=== PATIENT | female | born 1965 | race Caucasian/White ===

== ENCOUNTER 2016-05-05 08:04 | Emergency (ER) | payer MEDICAID, OTHER ==
[~2016-05-05] VITALS: Ht 162.6 cm; Wt 220.9 kg
--- OUTSIDE RECORDS SUMMARY | 2016-05-05 08:11 | XMS REPORT ---
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 Name Role Phone GIANLUCA GARCIA CP Unavailable Allergies No Known Allergies Problems Problem Type Condition Code Onset Dates Condition Status Problem Polycystic ovaries 256.4 Active Problem Unspecified hypothyroidism 244.9 Active Problem Depressive disorder, not elsewhere classified 311 Active Problem Absence of menstruation 626.0 Active Problem Morbid obesity 278.01 Active Problem Type II or unspecified type diabetes mellitus with neurological manifestations, 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
[2016-05-05] MEDS ORDERED: RT-ALBUTEROL SULF 2.5 MG/3 ML PRE-MIX VIAL INH STA (08:22)
[2016-05-05] MEDS ORDERED: METF500T4 PO (08:30)
[2016-05-05] MEDS ORDERED: INSU100V6 SQ (08:30)
[2016-05-05] MEDS ORDERED: LEVO75TA6 PO (08:30)
[2016-05-05] MEDS ORDERED: PIOG30TA38 PO (08:30)
[2016-05-05] MEDS ORDERED: ASPIRIN 81 MG CHEW (CHILDREN'S ASA) PO ONE (08:30)
[2016-05-05] MEDS ORDERED: FURO20TA4 PO (08:30)
[2016-05-05] MEDS ORDERED: RT-ALBUTEROL/IPRATROPIUM 3 ML (DUONEB) VIAL INH ONE (08:30)
--- NOTE | 2016-05-05 08:40 | ED Respiratory ---
General Chief Complaint: Chest Wall/Rib Pain Stated Complaint: CHEST PAIN/SOA Source: patient Exam Limitations: no limitations History of Present Illness Time seen by provider: 08:25 Initial Comments Here with report of upper chest tightness for the last 12 hours. States feels like she can't get a full deep breath. She did try a breathing treatment and that did not help. Pain is described as a tightness or heaviness. This is been persistent for the last 12 hours. She did take 2 baby aspirin last night but nothing this morning. Timing/Duration: yesterday Severity: moderate Prior Episodes/Possible Cause: occasional episodes Modifying Factors: Worse With Activity, Worse With Coughing, Worse With Lying Down Associated Symptoms: chest pain/soreness coughNo fever/chills, nasal congestion shortness of breathNo sinus infection Allergies and Home Medications Allergies Coded Allergies: Sulfa (Sulfonamide Antibiotics) (Verified Allergy, Unknown, 05/05/16) codeine (Verified Allergy, Unknown, 05/05/16) levofloxacin (Verified Allergy, Unknown, 05/05/16) Home Medications Furosemide 20 Mg Tablet #30 (Reported) Insulin Glargine,Hum.rec.anlog 100 Unit/1 Ml Vial #70 (Reported) Levothyroxine Sodium 75 Mcg Tablet #30 (Reported) Metformin HCl 500 Mg Tablet #30 (Reported) Pioglitazone HCl 30 Mg Tablet 30 MG PO (Reported) Constitutional: see HPINo chills, No fever EENTM: no symptoms reported Respiratory: cough dyspnea on exertion short of breath Cardiovascular: chest pain edema Gastrointestinal: no symptoms reported Musculoskeletal: muscle painNo neck pain Skin: no symptoms reported Psychiatric/Neurological: No Symptoms Reported All Other Systems Reviewed Negative Unless Noted: Yes Past Zrdemca-Bkiggs-Fdcoic Hx Patient Social History Alcohol Use: Occasionally Uses Recreational Drug Use: No Smoking Status: Never a Smoker Recent Hopitalizations: No Seasonal Allergies Seasonal Allergies: Yes Surgeries Surgeries: Gallbladder, Tonsillectomy Respiratory Hx Respiratory Disorders: Yes Respiratory Disorders: Asthma, COPD Cardiovascular Hx Cardiac Disorders: No Cardiac Disorders: High Cholesterol Neurological Hx Neurological Disorders: No Genitourinary Hx Genitourinary Disorders: No Gastrointestinal Hx Gastrointestinal Disorders: No Musculoskeletal Hx Musculoskeletal Disorders: Yes Musculoskeletal Disorders: Arthritis Endocrine Hx Endocrine Disorders: Yes Endocrine Disorders: Diabetes, Insulin dep, Hypothyroidsim Cancer Hx Cancer: No Psychosocial Hx Psychiatric Problems: Yes Behavioral Health Disorders: Anxiety Reviewed Nursing Assessment Reviewed/Agree w Nursing PMH: Yes Family Medical History Significant Family History: No Pertinent Family Hx Physical Exam Vital Signs Vital Sign - Last 12Hours 05/05/16 08:09 Temp 97.3 Pulse 89 Resp 18 B/P 168/95 Pulse Ox 96 O2 Delivery Room Air Capillary Refill : General Appearance: WD/WN no apparent distress obese HEENT: PERRL/EOMI pharynx normal other (frontal and maxillary sinus tenderness with moderate nasal congestion.) Neck: full range of motion supple Respiratory: lungs clear normal breath sounds Cardiovascular: regular rate, rhythm no murmur Gastrointestinal: non tender soft Extremities: normal range of motion non-tender pedal edema (versus adipose tissue. Patient states she feels more swollen.) Neurologic/Psychiatric: alert oriented x 3 Skin: normal color warm/dry Progress/Results/Core Measures Results/Orders Lab Results Laboratory Tests Test 05/05/16 08:49 Range/Units Activated Partial Thromboplast Time 27 24-35 SEC Alanine Aminotransferase (ALT/SGPT) 17 0-55 U/L Albumin 3.8 3.2-4.5 G/DL Alkaline Phosphatase 84 40-136 U/L Anion Gap 14 5-14 MMOL/L Aspartate Amino Transf (AST/SGOT) 13 5-34 U/L BUN/Creatinine Ratio 18 Basophils # (Auto) 0.0 0.0-0.1 10^3/uL Basophils (%) (Auto) 0 0-10 % Blood Urea Nitrogen 14 7-18 MG/DL Calcium Level 8.7 8.5-10.1 MG/DL Carbon Dioxide Level 23 21-32 MMOL/L Chloride Level 104 98-107 MMOL/L Creatinine 0.79 0.60-1.30 MG/DL Eosinophils # (Auto) 0.1 0.0-0.3 10^3/uL Eosinophils (%) (Auto) 2 0-10 % Estimat Glomerular Filtration Rate > 60 Glucose Level 139 H 70-105 MG/DL Hematocrit 37 35-52 % Hemoglobin 12.1 11.5-16.0 G/DL INR Comment 1.0 0.8-1.4 Lymphocytes # (Auto) 2.2 1.0-4.0 X 10^3 Lymphocytes (%) (Auto) 26 12-44 % Magnesium Level 1.6 L 1.8-2.4 MG/DL Mean Corpuscular Hemoglobin 30 25-34 PG Mean Corpuscular Hemoglobin Concent 33 32-36 G/DL Mean Corpuscular Volume 93 80-99 FL Mean Platelet Volume 10.1 7.4-10.4 FL Monocytes # (Auto) 0.5 0.0-1.0 X 10^3 Monocytes (%) (Auto) 6 0-12 % Myoglobin 40.1 10.0-92.0 NG/ML Neutrophils # (Auto) 5.6 1.8-7.8 X 10^3 Neutrophils (%) (Auto) 66 42-75 % Platelet Count 264 130-400 10^3/uL Potassium Level 3.9 3.6-5.0 MMOL/L Prothrombin Time 12.6 12.2-14.7 SEC Red Blood Count 4.00 L 4.35-5.85 10^6/uL Red Cell Distribution Width 13.3 10.0-14.5 % Sodium Level 141 135-145 MMOL/L Total Bilirubin 0.3 0.1-1.0 MG/DL Total Protein 7.0 6.4-8.2 G/DL Troponin I < 0.30 <0.30 NG/ML White Blood Count 8.5 4.3-11.0 10^3/uL My Orders Orders-MI STEINBERG MD Cbc With Automated Diff (05/05/16 08:22) Magnesium (05/05/16 08:22) Ekg Tracing (05/05/16 08:22) Cardiac Profile 1 (05/05/16 08:22) Comprehensive Metabolic Panel (05/05/16 08:22) Myoglobin Serum (05/05/16 08:22) Protime With Inr (05/05/16 08:22) Partial Thromboplastin Time (05/05/16 08:22) O2 (05/05/16 08:22) Monitor-Rhythm Ecg Trace Only (05/05/16 08:22) Lipid Panel (05/06/16 06:00) Aspirin Chewable Tablet (Baby Aspirin Ch (05/05/16 08:30) Saline Lock/Iv-Start (05/05/16 08:22) Albuterol Pre-Mix Nebs (Rt) (Proventil P (05/05/16 08:22) Albuterol/Ipra Inhalation Soln (Duoneb I (05/05/16 08:30) Svn Sm Volume Nebulizer Rt-Rfs (05/05/16 08:22) Svn Sm Volume Nebulizer Rt-Rfs (05/05/16 08:22) Chest Pa/Lat (2 View) (05/05/16 08:46) Levofloxacin Tablet (Levaquin Tablet) (05/05/16 10:17) Prednisone Tablet (Deltasone Tablet) (05/05/16 10:30) Medications Given in ED Current Medications Medications Dose Ordered Sig/Zack Route Start Time Stop Time Status Last Admin Dose Admin Albuterol/ Ipratropium 3 ml ONCE ONCE INH 05/05/16 08:30 05/05/16 08:31 DC 05/05/16 08:53 3 ML Aspirin 324 mg ONCE ONCE PO 05/05/16 08:30 05/05/16 08:31 DC 05/05/16 09:01 324 MG Vital Signs/I&O Vital Sign - Last 12Hours 05/05/16 05/05/16 05/05/16 08:09 08:53 08:57 Temp 97.3 Pulse 89 Resp 18 B/P 168/95 Pulse Ox 96 100 100 O2 Delivery Room Air Progress Note : Progress Note Seen and evaluated. IV, labs, EKG and chest x-ray. ASA 324 mg by mouth. DuoNeb and albuterol neb ordered. Monitor patient. 1010: No acute findings. Patient does report frontal and maxillary sinus congestion and tenderness that' s been going on for 4-5 days. We will treat her outpatient with Levaquin and prednisone. Patient reports allergy to Levaquin but states that it's actually side effect in that she just gets nausea with it. She has taken it multiple times without serious allergic reaction. She reports that Levaquin is okay. Levaquin 500 mg by mouth and prednisone 40 mg by mouth given. Discharged home with return precautions. Patient verbalize understanding instructions and agreement with plan. ECG Initial ECG Impression Date: May 05, 2016 Initial ECG Impression Time: 08:20 Initial ECG Rate: 88 Initial ECG Rhythm: Normal Sinus Initial ECG Impression: Normal Comment Sinus rhythm with normal axis. No evidence of ST elevation [place]. Similar to previous of 08/17/2000. Interpreted by me. Departure Impression Impression: Primary Impression: Acute sinusitis Qualified Code: J01.00 - Acute maxillary sinusitis, unspecified Additional Impression: Bronchitis Disposition: HOME, SELF-CARE Condition: Improved Departure-Patient Inst. Decision time for Depature: 10:23 Referrals: [facility] [place] (PCP/Family) Primary Care Physician Patient Instructions: Acute Bronchitis, Adult (DC), Sinusitis, Adult (DC) Add. Discharge Instructions: All discharge instructions reviewed with patient and/or family. Voiced understanding. Take medications as directed. Follow-up with your Dr. later this week for recheck and further evaluation. Return for worsening, fever, vomiting, weakness , breathing problems, persistent chest pain or other concerns as needed. You may use Afrin nasal spray or the generic, 12 hour relief, 2 sprays to each nostril twice daily for 3 days only and then stop. You may use antibiotic ointment over wound on your back at the skin fold as well as the antifungal powder. Scripts Prednisone 20 Mg Tab40 Mg PO DAILY #8 TAB Prov:MI STEINBERG MD 05/05/16 Levofloxacin 500 Mg [id number] Mg PO DAILY #6 TAB Prov:MI STEINBERG MD 05/05/16 MI STEINBERG MD May 05, 2016 08:40
[2016-05-05 08:55] LABS: BASOPHILS % (AUTO) 0 % (0-10); EOSINOPHILS # (AUTO) 0.1 10^3/uL (0.0-0.3); EOSINOPHILS % (AUTO) 2 % (0-10); LYMPHOCYTES # (AUTO) 2.2 X 10^3 (1.0-4.0); LYMPHOCYTES % (AUTO) 26 % (12-44); MEAN CORPUSCULAR HEMOGLOBIN 30 PG (25-34); MEAN CORPUSCULAR HGB CONC 33 G/DL (32-36); MEAN CORPUSCULAR VOLUME 93 FL (80-99); MEAN PLATELET VOLUME 10.1 FL (7.4-10.4); MONOCYTES # (AUTO) 0.5 X 10^3 (0.0-1.0); MONOCYTES % (AUTO) 6 % (0-12); NEUTROPHILS # (AUTO) 5.6 X 10^3 (1.8-7.8); NEUTROPHILS % (AUTO) 66 % (42-75); PLATELET COUNT 264 10^3/uL (130-400); RED CELL DISTRIBUTION WIDTH 13.3 % (10.0-14.5); WHITE BLOOD COUNT 8.5 10^3/uL (4.3-11.0)
[2016-05-05 09:07] LABS: PROTHROMBIN TIME PATIENT 12.6 SEC (12.2-14.7)
[2016-05-05 09:19] LABS: ALANINE AMINOTRANSFERASE 17 U/L (0-55); ALBUMIN 3.8 G/DL (3.2-4.5); ANION GAP 14 MMOL/L (5-14); ASPARTATE AMINO TRANSFERASE 13 U/L (5-34); BILIRUBIN,TOTAL 0.3 MG/DL (0.1-1.0); BLOOD UREA NITROGEN 14 MG/DL (7-18); BUN/CREATININE RATIO 18; CALCIUM 8.7 MG/DL (8.5-10.1); CARBON DIOXIDE 23 MMOL/L (21-32); CHLORIDE 104 MMOL/L (98-107); CREATININE SERUM 0.79 MG/DL (0.60-1.30); GFR ESTIMATED > 60; GLUCOSE 139 MG/DL (70-105); MAGNESIUM 1.6 MG/DL (1.8-2.4); POTASSIUM 3.9 MMOL/L (3.6-5.0); SODIUM 141 MMOL/L (135-145)
[2016-05-05 09:25] LABS: MYOGLOBIN SERUM 40.1 NG/ML (10.0-92.0)
--- NOTE | 2016-05-05 09:36 | Diagnostic Imaging Report ---
INDICATION: Shortness of breath, no priors. FINDINGS: The heart size is at the upper limits of normal. There is no gross overdistention of the vascularity. No convincing evidence of edema. No pleural fluid, effusion or pneumothorax. IMPRESSION: No acute appearing abnormality. Dictated by: Dictated on workstation # [id number]
[2016-05-05] MEDS ORDERED: LEVOFLOXACIN 500 MG TAB (LEVAQUIN) PO STA (10:17)
[2016-05-05] MEDS ORDERED: LEVO500T80 PO (10:24)
[2016-05-05] MEDS ORDERED: PRD20T PO (10:24)
[2016-05-05] MEDS ORDERED: predniSONE 20 MG TAB PO ONE (10:30)
[2016-05-05 10:31] VITALS: BP 144/69
== END 2016-05-05 10:34 | disposition home or self-care (01) ==
LOC: EDUNIT# 08:04 → ER 08:07
DX: J01.00 Acute maxillary sinusitis, unspecified (principal); J44.0 Chronic obstructive pulmonary disease with (acute) lower respiratory infection; E11.9 Type 2 diabetes mellitus without complications; Z79.84 Long term (current) use of oral hypoglycemic drugs; Z79.4 Long term (current) use of insulin; Z79.899 Other long term (current) drug therapy
CPT/HCPCS: 36415; 71020; 80053; 83735; 83874; 84484; 85025; 85610; 85730; 93005; 93041; 94640

== ENCOUNTER 2016-06-28 15:46 | Inpatient (IN) | payer MEDICAID ==
[~2016-06-28] VITALS: Ht 165.1 cm; Wt 215.5 kg
[~2016-06-28 15:46] MED LIST: FURO20TA4 PO; INSU100V6 SQ; LEVO500T80 PO; LEVO75TA6 PO; METF500T4 PO; PIOG30TA38 PO; PRD20T PO
[2016-06-28] MEDS ORDERED: CLINDAMYCIN INJECTION 900 MG in NS (IVPB) 50 ML IV ONE (16:30)
--- NOTE | 2016-06-28 16:54 | ED Integumentary General ---
General Chief Complaint: Skin/Wound Problems Stated Complaint: CELLULITIS Nursing Triage Note: PT REPORTS CELLULITIS ON HER ABD. SHE REPORTS S/S BEGAN LAST NOC ACCOMPANIED BY FEVER AND CHILLS. Source: patient Exam Limitations: no limitations History of Present Illness Time seen by provider: 16:52 Initial Comments To ER with redness to the right side of her pannus since last night. She had temperature up to 103. She is had intermittent bouts of cellulitis to the pannus and lower extremities usually treated with Rocephin, Levaquin or clindamycin effectively she states. She is a diabetic and this has caused her sugars to increase from atypical 120-150 range to about 200-225. Timing/Duration: yesterday Severity: moderate Location: torso Associated Symptoms: denies symptoms Allergies and Home Medications Allergies Coded Allergies: Sulfa (Sulfonamide Antibiotics) (Verified Allergy, Unknown, 05/05/16) codeine (Verified Allergy, Unknown, 05/05/16) Home Medications Furosemide 20 Mg Tablet, #30 (Reported) Insulin Glargine,Hum.rec.anlog 100 Unit/1 Ml Vial, #70 (Reported) Levofloxacin 500 Mg Tablet, 500 MG PO DAILY, #6 Prescribed by: MI STEINBERG on 05/05/16 1024 Levothyroxine Sodium 75 Mcg Tablet, #30 (Reported) Metformin HCl 500 Mg Tablet, #30 (Reported) Pioglitazone HCl 30 Mg Tablet, 30 MG PO, (Reported) Prednisone 20 Mg Tab, 40 MG PO DAILY, #8 Prescribed by: MI STEINBERG on 05/05/16 1024 Constitutional: see HPI EENTM: see HPI Respiratory: no symptoms reported Cardiovascular: no symptoms reported Genitourinary: no symptoms reported Musculoskeletal: no symptoms reported Skin: see HPI Psychiatric/Neurological: No Symptoms Reported Endocrine: No Symptoms Reported Past Ltqixgx-Mjpbax-Ukoesc Hx Patient Social History Alcohol Use: Occasionally Uses Recreational Drug Use: No Smoking Status: Never a Smoker 2nd Hand Smoke Exposure: No Recent Foreign Travel: No Contact w/Someone Who Travel: No Recent Infectious Disease Expo: No Recent Hopitalizations: No Seasonal Allergies Seasonal Allergies: Yes Surgeries HX Surgeries: Yes Surgeries: Adenoidectomy, Gallbladder, Tonsillectomy Respiratory Hx Respiratory Disorders: Yes Respiratory Disorders: Asthma, COPD Cardiovascular Hx Cardiac Disorders: No Cardiac Disorders: High Cholesterol Neurological Hx Neurological Disorders: No Genitourinary Hx Genitourinary Disorders: No Gastrointestinal Hx Gastrointestinal Disorders: No Musculoskeletal Hx Musculoskeletal Disorders: Yes Musculoskeletal Disorders: Arthritis Endocrine Hx Endocrine Disorders: Yes Endocrine Disorders: Diabetes, Insulin dep, Hypothyroidsim Cancer Hx Cancer: No Psychosocial Hx Psychiatric Problems: Yes Behavioral Health Disorders: Anxiety Family Medical History Significant Family History: No Pertinent Family Hx Physical Exam Vital Signs Vital Sign - Last 12Hours 06/28/16 16:10 Temp 99.2 Pulse 108 Resp 20 B/P (MAP) 161/86 Pulse Ox 96 O2 Delivery Room Air Capillary Refill : Less Than 3 Seconds General Appearance: WD/WN, no apparent distress, obese HEENT: PERRL/EOMI, normal ENT inspection Neck: non-tender, full range of motion Cardiovascular: no murmur, tachycardia Respiratory: normal breath sounds, no respiratory distress, no accessory muscle use Gastrointestinal: normal bowel sounds, non tender, soft Extremities: normal range of motion, non-tender Neurologic/Psychiatric: alert, normal mood/affect, abnormal cerebellar tests Skin: normal color, warm/dry, other (large area of erythema to the right lower pannus without induration or fluctuance to suggest abscess.) Skin Problem Character: erythema, other (no drainage to be collected for culture. There is no crepitus fluctuance or induration on palpation. There is some firmness/induration over an ecchymotic area to the left side of the abdomen which she states is from bumping this area against a countertop at home last week. There is no erythema to this area however.) Progress/Results/Core Measures Results/Orders Lab Results Laboratory Tests Test 06/28/16 16:40 Range/Units White Blood Count 12.7 H 4.3-11.0 10^3/uL Red Blood Count 4.41 4.35-5.85 10^6/uL Hemoglobin 13.1 11.5-16.0 G/DL Hematocrit 40 35-52 % Mean Corpuscular Volume 91 80-99 FL Mean Corpuscular Hemoglobin 30 25-34 PG Mean Corpuscular Hemoglobin Concent 33 32-36 G/DL Red Cell Distribution Width 14.0 10.0-14.5 % Platelet Count 263 130-400 10^3/uL Mean Platelet Volume 10.5 H 7.4-10.4 FL Neutrophils (%) (Auto) 83 H 42-75 % Lymphocytes (%) (Auto) 12 12-44 % Monocytes (%) (Auto) 5 0-12 % Eosinophils (%) (Auto) 0 0-10 % Basophils (%) (Auto) 0 0-10 % Neutrophils # (Auto) 10.6 H 1.8-7.8 X 10^3 Lymphocytes # (Auto) 1.6 1.0-4.0 X 10^3 Monocytes # (Auto) 0.6 0.0-1.0 X 10^3 Eosinophils # (Auto) 0.0 0.0-0.3 10^3/uL Basophils # (Auto) 0.0 0.0-0.1 10^3/uL Sodium Level 137 135-145 MMOL/L Potassium Level 4.9 3.6-5.0 MMOL/L Chloride Level 103 98-107 MMOL/L Carbon Dioxide Level 20 L 21-32 MMOL/L Anion Gap 14 5-14 MMOL/L Blood Urea Nitrogen 15 7-18 MG/DL Creatinine 0.93 0.60-1.30 MG/DL Estimat Glomerular Filtration Rate > 60 BUN/Creatinine Ratio 16 Glucose Level 201 H 70-105 MG/DL Lactic Acid Level 2.88 *H 0.50-2.00 MMOL/L Calcium Level 9.1 8.5-10.1 MG/DL Total Bilirubin 0.7 0.1-1.0 MG/DL Aspartate Amino Transf (AST/SGOT) 22 5-34 U/L Alanine Aminotransferase (ALT/SGPT) 16 0-55 U/L Alkaline Phosphatase 89 40-136 U/L Total Protein 7.9 6.4-8.2 G/DL Albumin 3.9 3.2-4.5 G/DL My Orders Orders - ANTONIO SPENCER APRN Cbc With Automated Diff (06/28/16 16:25) Comprehensive Metabolic Panel (06/28/16 16:25) Saline Lock/Iv-Start (06/28/16 16:25) Lactic Acid Analyzer (06/28/16 16:25) Blood Culture (06/28/16 16:25) Clindamycin Injection (Cleocin Injection (06/28/16 16:30) Ibuprofen Tablet (Motrin Tablet) (06/28/16 17:15) Ceftriaxone Injection (Rocephin Injectio (06/28/16 17:45) Medications Given in ED Current Medications Medications Dose Ordered Sig/Zack Route Start Time Stop Time Status Last Admin Dose Admin Ceftriaxone Sodium 1000 mg/ Sodium Chloride 50 ml @ 100 mls/hr ONCE ONCE IV 06/28/16 17:45 06/28/16 18:14 06/28/16 18:03 100 MLS/HR Clindamycin Phosphate 900 mg/ Sodium Chloride 56 ml @ 100 mls/hr ONCE ONCE IV 06/28/16 16:30 06/28/16 17:03 DC 06/28/16 17:16 100 MLS/HR Ibuprofen 600 mg ONCE ONCE PO 06/28/16 17:15 06/28/16 17:16 DC 06/28/16 17:39 600 MG Vital Signs/I&O Vital Sign - Last 12Hours 06/28/16 16:10 Temp 99.2 Pulse 108 Resp 20 B/P (MAP) 161/86 Pulse Ox 96 O2 Delivery Room Air Blood Pressure Mean: 111 Departure Communication Time/Spoke to Admitting Phy: 18:12 Communication Discussed the case with Dr. Murray. We will admit the patient to the ICU, consult Dr. Ac Time/Spoke to Consulting Physi: 18:13 Communication/Consulting Spoke with Dr. Ac, he agrees to consult. Patient is stable at this time without immediate need for debridement or sign of necrotizing fasciitis such as crepitus, she has essentially no pain on palpation of this area, no vesicles, Impression Impression: Primary Impression: Cellulitis Disposition: ADMITTED INPATIENT Condition: Stable Decision to Admit Reason: Admit from ER (General) Decision to Admit/Date: Jun 28, 2016 Time/Decision to Admit Time: 18:15 Departure-Patient Inst. Decision time for Depature: 16:54 Referrals: [facility] (PCP/Family) Primary Care Physician Patient Instructions: Cellulitis (Skin Infection), Adult (DC) Images Torso/Trunk 1 - Cellulitis ANTONIO SPENCER SASH FINISHER Jun 28, 2016 16:54
[2016-06-28 17:01] LABS: BASOPHILS % (AUTO) 0 % (0-10); EOSINOPHILS % (AUTO) 0 % (0-10); LYMPHOCYTES # (AUTO) 1.6 X 10^3 (1.0-4.0); LYMPHOCYTES % (AUTO) 12 % (12-44); MEAN CORPUSCULAR HEMOGLOBIN 30 PG (25-34); MEAN CORPUSCULAR HGB CONC 33 G/DL (32-36); MEAN CORPUSCULAR VOLUME 91 FL (80-99); MEAN PLATELET VOLUME 10.5 FL (7.4-10.4); MONOCYTES # (AUTO) 0.6 X 10^3 (0.0-1.0); MONOCYTES % (AUTO) 5 % (0-12); NEUTROPHILS # (AUTO) 10.6 X 10^3 (1.8-7.8); NEUTROPHILS % (AUTO) 83 % (42-75); PLATELET COUNT 263 10^3/uL (130-400); RED BLOOD COUNT 4.41 10^6/uL (4.35-5.85); WHITE BLOOD COUNT 12.7 10^3/uL (4.3-11.0)
[2016-06-28] MEDS ORDERED: IBUPROFEN TABLET 200 MG TAB PO ONE (17:15)
[2016-06-28 17:22] LABS: ALANINE AMINOTRANSFERASE 16 U/L (0-55); ALBUMIN 3.9 G/DL (3.2-4.5); ANION GAP 14 MMOL/L (5-14); ASPARTATE AMINO TRANSFERASE 22 U/L (5-34); BILIRUBIN,TOTAL 0.7 MG/DL (0.1-1.0); BLOOD UREA NITROGEN 15 MG/DL (7-18); BUN/CREATININE RATIO 16; CALCIUM 9.1 MG/DL (8.5-10.1); CARBON DIOXIDE 20 MMOL/L (21-32); CHLORIDE 103 MMOL/L (98-107); CREATININE SERUM 0.93 MG/DL (0.60-1.30); GFR ESTIMATED > 60; GLUCOSE 201 MG/DL (70-105); POTASSIUM 4.9 MMOL/L (3.6-5.0); SODIUM 137 MMOL/L (135-145); TOTAL PROTEIN 7.9 G/DL (6.4-8.2)
[2016-06-28] MEDS ORDERED: cefTRIAXone INJECTION 1,000 MG in NS (IVPB) 50 ML IV ONE (17:45)
--- NOTE | 2016-06-28 19:25 | Diagnostic Imaging Report ---
EXAM: Ultrasound abdomen limited. DATE: June 28, 2016. INDICATION: 50-year-old female, cellulitis of the lower abdominal wall. Evaluation for abscess. COMPARISON: None. FINDINGS: Targeted ultrasound of the lower abdominal wall was performed. There does appear to be abnormal appearance of the subcutaneous fat with areas of generalized subcutaneous fluid. There is no demonstrated well marginated drainable fluid collection or abscess. IMPRESSION: 1. No identified focal drainable fluid collection or abscess. 2. Abnormal subcutaneous edema which is nonspecific although potentially could relate to cellulitis in the appropriate clinical setting. Dictated by: Dictated on workstation # [id number]
[2016-06-28 19:30] VITALS: BP 151/74
[2016-06-28] MEDS ORDERED: NS IV 1000 ML 1,000 ML ONE (19:36)
[2016-06-28 20:00] VITALS: BP 164/97
[2016-06-28] MEDS ORDERED: IBUPROFEN 600 MG (MOTRIN) TAB PO PRN (20:00)
[2016-06-28] MEDS ORDERED: NS IV 1000 ML 1,000 ML IV SCH (20:00)
[2016-06-28] MEDS ORDERED: VANCOMYCIN INJECTION 1,000 MG in NS (IVPB) 250 ML IV SCH (20:15)
[2016-06-28 21:00] VITALS: BP 149/65
[2016-06-28] MEDS: inSUlin (REGULAR) HUMAN 1 UNIT/0.01 ML (CHARGE PER UNIT) SC SCH (21:20)
--- NOTE | 2016-06-28 21:43 | Consultation ---
History of Present Illness History of Present Illness Patient Consulted On(sandeep/time) 06/28/16 21:35 Date of Admission History of Present Illness Consult by Dr. Murray for cellulitis abdomen. Patient is a a 50 year old female with cellulitis that began yesterday evening. Noticed it being red after eating dinner and starting to feel ill. She thought it was the food but then noticed her abdomen being red. She doesn't have much pain in the abdomen. She states she's had fever up to 103 and had some chills. Patient blood sugars have increased as well. She notes having cellulitis of her pannus 3 previous times. She also notes skin changes to the left her abdomen which are unchanged from her shots. Allergies and Home Medications Allergies Coded Allergies: Sulfa (Sulfonamide Antibiotics) (Verified Allergy, Unknown, 05/05/16) codeine (Verified Allergy, Unknown, 05/05/16) Home Medications Furosemide 20 Mg Tablet, #30 (Reported) Insulin Glargine,Hum.rec.anlog 100 Unit/1 Ml Vial, #70 (Reported) Levofloxacin 500 Mg Tablet, 500 MG PO DAILY, #6 Prescribed by: MI STEINBERG on 05/05/16 1024 Levothyroxine Sodium 75 Mcg Tablet, #30 (Reported) Metformin HCl 500 Mg Tablet, #30 (Reported) Pioglitazone HCl 30 Mg Tablet, 30 MG PO, (Reported) Prednisone 20 Mg Tab, 40 MG PO DAILY, #8 Prescribed by: MI STEINBERG on 05/05/16 1024 Past Gmtxkoe-Ekxmfj-Tnlgou Hx Patient Social History Alcohol Use: Occasionally Uses Recreational Drug Use: No Smoking Status: Never a Smoker 2nd Hand Smoke Exposure: No Recent Foreign Travel: No Contact w/Someone Who Travel: No Recent Infectious Disease Expo: No Recent Hopitalizations: No Immunizations Up To Date Date of Pneumonia Vaccine: Jun 29, 2011 Seasonal Allergies Seasonal Allergies: Yes Surgeries HX Surgeries: Yes Surgeries: Adenoidectomy, Gallbladder, Tonsillectomy Respiratory Hx Respiratory Disorders: Yes Respiratory Disorders: Asthma, COPD Cardiovascular Hx Cardiac Disorders: No Cardiac Disorders: High Cholesterol Neurological Hx Neurological Disorders: No Genitourinary Hx Genitourinary Disorders: No Gastrointestinal Hx Gastrointestinal Disorders: No Musculoskeletal Hx Musculoskeletal Disorders: Yes Musculoskeletal Disorders: Arthritis Endocrine Hx Endocrine Disorders: Yes Endocrine Disorders: Diabetes, Insulin dep, Hypothyroidsim Cancer Hx Cancer: No Psychosocial Hx Psychiatric Problems: Yes Behavioral Health Disorders: Anxiety Family Medical History Significant Family History: No Pertinent Family Hx Review of Systems-General Constitutional: see HPI EENTM: no symptoms reported Respiratory: no symptoms reported Cardiovascular: no symptoms reported Gastrointestinal: see HPI Genitourinary: no symptoms reported Musculoskeletal: no symptoms reported Skin: see HPI, change in color Psychiatric/Neurological: No Symptoms Reported Physical Exam-General Problems Physical Exam Vital Signs Vital Sign - Last 12Hours 06/28/16 16:10 Temp 99.2 Pulse 108 Resp 20 B/P (MAP) 161/86 Pulse Ox 96 O2 Delivery Room Air Capillary Refill : Less Than 3 Seconds General Appearance: no apparent distress (laying in bed) Cardiovascular: tachycardia Gastrointestinal: non tender, other (obese abdomen large pannus, firm area left lower quadrant, significant cellulitis, small sore inferior to umbilicus) Rectal: deferred Extremities: non-tender Neurologic/Psychiatric: alert, normal mood/affect, oriented x 3 Skin: other (erythematous changes to pannus of abdomen) Data Review Labs Laboratory Tests 06/28/16 16:40: White Blood Count 12.7H, Red Blood Count 4.41, Hemoglobin 13.1, Hematocrit 40, Mean Corpuscular Volume 91, Mean Corpuscular Hemoglobin 30, Mean Corpuscular Hemoglobin Concent 33, Red Cell Distribution Width 14.0, Platelet Count 263, Mean Platelet Volume 10.5H, Neutrophils (%) (Auto) 83H, Lymphocytes (%) (Auto) 12, Monocytes (%) (Auto) 5, Eosinophils (%) (Auto) 0, Basophils (%) (Auto) 0, Neutrophils # (Auto) 10.6H, Lymphocytes # (Auto) 1.6, Monocytes # (Auto) 0.6, Eosinophils # (Auto) 0.0, Basophils # (Auto) 0.0, Sodium Level 137, Potassium Level 4.9, Chloride Level 103, Carbon Dioxide Level 20L, Anion Gap 14, Blood Urea Nitrogen 15, Creatinine 0.93, Estimat Glomerular Filtration Rate > 60, BUN/ Creatinine Ratio 16, Glucose Level 201H, Lactic Acid Level 2.88*H, Calcium Level 9.1, Total Bilirubin 0.7, Aspartate Amino Transf (AST/SGOT) 22, Alanine Aminotransferase (ALT/SGPT) 16, Alkaline Phosphatase 89, Total Protein 7.9, Albumin 3.9 06/28/16 18:39: Lactic Acid Level 1.70 06/28/16 21:09: Glucometer 212H Assessment/Plan Assessment/Plan Assessment/Plan cellulitis of pannus, sepsis (tachycardic and elevated wbc) DM U/s no fluid collection or air at this time continue abx cellulitis is outlined on sliding scale for blood sugars no surgical intervention at this time. ROXANA BRAY DO Jun 28, 2016 21:43
[2016-06-28 22:00] VITALS: BP 160/67
[2016-06-28 22:33] LABS: BILIRUBIN,URINE NEGATIVE (NEGATIVE); KETONES,URINE NEGATIVE (NEGATIVE); LEUKOCYTE ESTERASE ,URINE 2+ (NEGATIVE); NITRITE,URINE NEGATIVE (NEGATIVE); PH,URINE 5 (5-9); PROTEIN,URINE 1+ (NEGATIVE); UROBILINOGEN,URINE NORMAL (NORMAL)
[2016-06-28 22:46] LABS: SQUAMOUS EPITHELIAL CELL,UR 25-50 /HPF
[2016-06-28 23:00] VITALS: BP 161/90
[2016-06-29] VITALS (14 sets, daily range): BP systolic 102–182; BP diastolic 58–106
[2016-06-29] MEDS: CLINDAMYCIN INJECTION 600 MG in NS (IVPB) 50 ML IV SCH ×4 (00:57→22:44)
[2016-06-29] MEDS ORDERED: RT-ALBUTEROL HFA (VENTOLIN) PER PUFF IH PRN (01:45)
[2016-06-29 04:20] LABS: BASOPHILS % (AUTO) 0 % (0-10); EOSINOPHILS % (AUTO) 0 % (0-10); LYMPHOCYTES # (AUTO) 1.8 X 10^3 (1.0-4.0); LYMPHOCYTES % (AUTO) 17 % (12-44); MEAN CORPUSCULAR HEMOGLOBIN 30 PG (25-34); MEAN CORPUSCULAR HGB CONC 32 G/DL (32-36); MEAN CORPUSCULAR VOLUME 92 FL (80-99); MEAN PLATELET VOLUME 10.5 FL (7.4-10.4); MONOCYTES # (AUTO) 0.8 X 10^3 (0.0-1.0); MONOCYTES % (AUTO) 8 % (0-12); NEUTROPHILS % (AUTO) 75 % (42-75); PLATELET COUNT 255 10^3/uL (130-400); RED BLOOD COUNT 4.04 10^6/uL (4.35-5.85); RED CELL DISTRIBUTION WIDTH 13.8 % (10.0-14.5); WHITE BLOOD COUNT 10.7 10^3/uL (4.3-11.0)
[2016-06-29 04:40] LABS: ANION GAP 11 MMOL/L (5-14); BLOOD UREA NITROGEN 15 MG/DL (7-18); BUN/CREATININE RATIO 16; CALCIUM 8.8 MG/DL (8.5-10.1); CARBON DIOXIDE 24 MMOL/L (21-32); CHLORIDE 103 MMOL/L (98-107); CREATININE SERUM 0.92 MG/DL (0.60-1.30); GFR ESTIMATED > 60; GLUCOSE 216 MG/DL (70-105); MAGNESIUM 1.5 MG/DL (1.8-2.4); PHOSPHORUS 3.7 MG/DL (2.3-4.7); POTASSIUM 3.9 MMOL/L (3.6-5.0); SODIUM 138 MMOL/L (135-145)
[2016-06-29] MEDS ORDERED: KCL 20 MEQ TAB (K-DUR) PO SCH (06:00)
[2016-06-29] MEDS ORDERED: MAGNESIUM 1 GM/100 ML IVPB 100 ML IV SCH (06:00)
[2016-06-29] MEDS ORDERED: POTASSIUM CL 10MEQ/50ML IVPB 50 ML IV SCH (06:00)
[2016-06-29] MEDS: MAGNESIUM 1 GM/100 ML IVPB 100 ML IV SCH ×2 (06:05→07:05)
[2016-06-29] MEDS: inSUlin (REGULAR) HUMAN 1 UNIT/0.01 ML (CHARGE PER UNIT) SC SCH ×4 (06:08→20:56)
[2016-06-29] MEDS: ACETAMINOPHEN 325 MG TABLET/CAPLET (TYLENOL) PO PRN ×2 (08:29→17:42)
[2016-06-29] MEDS ORDERED: CATHETER FLUSH 10 ML SYR IV PRN (08:30)
--- NOTE | 2016-06-29 09:05 | Progress Note ---
Subjective Subjective/Events-last exam no new complaints. feels a little better. no fever overnight. denies n/v fever sweats chills shortness of breath or chest pain. Objective Exam Vital Signs Date Time Temp Pulse Resp B/P (MAP) Pulse Ox O2 Delivery O2 Flow Rate FiO2 06/29/16 08:24 98.9 94 6 149/58 94 Room Air 06/29/16 07:00 97 06/29/16 06:00 93 16 173/92 90 Room Air 06/29/16 05:00 103 22 113/63 100 Room Air 06/29/16 04:00 98.9 92 18 163/77 93 Room Air 06/29/16 04:00 93 06/29/16 03:00 80 15 169/70 100 Room Air 06/29/16 02:00 85 27 182/106 93 Room Air 06/29/16 01:00 84 25 115/96 Room Air 06/29/16 01:00 85 06/29/16 00:00 93 06/29/16 00:00 98.2 90 102/77 94 Room Air 06/28/16 23:00 90 29 161/90 94 Room Air 06/28/16 22:00 90 32 160/67 94 Room Air 06/28/16 21:00 84 29 149/65 Room Air 06/28/16 20:00 94 16 164/97 Room Air 06/28/16 19:33 90 06/28/16 19:30 99.8 88 16 151/74 94 Room Air 06/28/16 19:25 94 06/28/16 19:12 99.2 110 18 96 06/28/16 16:10 99.2 108 20 161/86 96 Room Air I & O 06/29/16 07:00 Intake Total 1880 ml Output Total 1275 ml Balance 605 ml Capillary Refill : Less Than 3 Seconds General Appearance: No Apparent Distress Neck: Supple Respiratory: No Accessory Muscle Use, No Respiratory Distress Cardiovascular: Regular Rate, Rhythm Gastrointestinal: non tender, other (obese abdomen large pannus, firm area left lower quadrant, significant cellulitis, small sore inferior to umbilicus, cellulitis slightly improved) Extremity: Non Tender Neurologic/Psychiatric: Alert, Oriented x3, Normal Mood/Affect Skin: Erythema (pannus) Results Lab Laboratory Tests 06/28/16 16:40: White Blood Count 12.7H, Red Blood Count 4.41, Hemoglobin 13.1, Hematocrit 40, Mean Corpuscular Volume 91, Mean Corpuscular Hemoglobin 30, Mean Corpuscular Hemoglobin Concent 33, Red Cell Distribution Width 14.0, Platelet Count 263, Mean Platelet Volume 10.5H, Neutrophils (%) (Auto) 83H, Lymphocytes (%) (Auto) 12, Monocytes (%) (Auto) 5, Eosinophils (%) (Auto) 0, Basophils (%) (Auto) 0, Neutrophils # (Auto) 10.6H, Lymphocytes # (Auto) 1.6, Monocytes # (Auto) 0.6, Eosinophils # (Auto) 0.0, Basophils # (Auto) 0.0, Sodium Level 137, Potassium Level 4.9, Chloride Level 103, Carbon Dioxide Level 20L, Anion Gap 14, Blood Urea Nitrogen 15, Creatinine 0.93, Estimat Glomerular Filtration Rate > 60, BUN/ Creatinine Ratio 16, Glucose Level 201H, Lactic Acid Level 2.88*H, Calcium Level 9.1, Total Bilirubin 0.7, Aspartate Amino Transf (AST/SGOT) 22, Alanine Aminotransferase (ALT/SGPT) 16, Alkaline Phosphatase 89, Total Protein 7.9, Albumin 3.9 06/28/16 18:39: Lactic Acid Level 1.70 06/28/16 21:09: Glucometer 212H 06/28/16 22:25: Urine Color YELLOW, Urine Clarity CLEAR, Urine pH 5, Urine Specific [place] 1.020, Urine Protein 1+H, Urine Glucose (UA) NEGATIVE, Urine Ketones NEGATIVE, Urine Nitrite NEGATIVE, Urine Bilirubin NEGATIVE, Urine Urobilinogen NORMAL, Urine Leukocyte Esterase 2+H, Urine RBC (Auto) NEGATIVE, Urine RBC NONE, Urine WBC 10-25H, Urine Squamous Epithelial Cells 25-50H, Urine Crystals NONE, Urine Bacteria LARGEH, Urine Casts NONE, Urine Mucus NEGATIVE, Urine Culture Indicated YES 06/29/16 04:00: White Blood Count 10.7, Red Blood Count 4.04L, Hemoglobin 12.0, Hematocrit 37, Mean Corpuscular Volume 92, Mean Corpuscular Hemoglobin 30, Mean Corpuscular Hemoglobin Concent 32, Red Cell Distribution Width 13.8, Platelet Count 255, Mean Platelet Volume 10.5H, Neutrophils (%) (Auto) 75, Lymphocytes (%) (Auto) 17 , Monocytes (%) (Auto) 8, Eosinophils (%) (Auto) 0, Basophils (%) (Auto) 0, Neutrophils # (Auto) 8.0H, Lymphocytes # (Auto) 1.8, Monocytes # (Auto) 0.8, Eosinophils # (Auto) 0.0, Basophils # (Auto) 0.0, Sodium Level 138, Potassium Level 3.9, Chloride Level 103, Carbon Dioxide Level 24, Anion Gap 11, Blood Urea Nitrogen 15, Creatinine 0.92, Estimat Glomerular Filtration Rate > 60, BUN/ Creatinine Ratio 16, Glucose Level 216H, Calcium Level 8.8, Phosphorus Level 3.7 , Magnesium Level 1.5L Assessment/Plan Assessment/Plan Assessment/Plan cellulitis of pannus, sepsis (tachycardic and elevated wbc) DM continue abx cellulitis is outlined and slightly improved on sliding scale for blood sugars no surgical intervention at this time. Clinical Quality Measures DVT/VTE Risk/Contraindication: Risk Factor Score Per Nursin RFS Level Per Nursing on Admit: 3=High ROXANA BRAY DO Jun 29, 2016 9:04 am
[2016-06-29] MEDS ORDERED: RT-ALBUTEROL SULF 2.5 MG/3 ML PRE-MIX VIAL ONE (09:19)
[2016-06-29] MEDS: VANCOMYCIN INJECTION 2,000 MG in NS IV 500 ML 500 ML IV SCH ×2 (09:31→20:50)
[2016-06-29] MEDS ORDERED: RT-ALBUTEROL SULF 2.5 MG/3 ML PRE-MIX VIAL IH PRN (09:45)
--- NOTE | 2016-06-29 09:54 | Diagnostic Imaging Report ---
INDICATION: Shortness of breath. EXAM: Portable chest at 5:19 AM. FINDINGS: Heart size and pulmonary vascularity are normal. The lungs are clear. There are no effusions or pneumothoraces. IMPRESSION: Negative chest. Dictated by: Dictated on workstation # [id number]
--- NOTE | 2016-06-29 12:13 | History & Physical-Hospitalist ---
HPI History of Present Illness: HPI/Chief Complaint CC: Pannus cellulitis HPI: this is a 50-year-old white female clinic patient at [facility] in [place] that has a history of diabetes and pannus cellulitis in the past most recent was 2012 the presents to the ER with redness on her lower abdomen pannus. She desperately wants to go home since her has to work tomorrow but I tell her that she is on 3 antibiotics it would be a good idea to remain here until morning and then everything will be done to discharge her on IV antibiotics to be done at [facility] through social work help to assure everything is in place to prevent further decompensation considering this could go into necrotizing fasciitis of not adequately treated. I told her that she could leave AGAINST MEDICAL ADVICE that there would be no hard feelings but I can't possibly discharge her today because of her in the ICU because the infection was so risky and severe. She is doing better and the redness is much improved and she did wear oxygen last night because of O2 sat decrease but she does not use any type of apparatus for sleep apnea that she appears to be at high risk for. Source: patient Date Seen 06/29/16 Attending Physician Shiloh Murray DO [place] [facility] [place] [facility] Referring Physician Date of Admission Jun 28, 2016 at 17:41 Home Medications & Allergies Home Medications Reviewed patient Home Medication Reconciliation Form Allergies Allergies Coded Allergies Sulfa (Sulfonamide Antibiotics) (Verified Allergy, Unknown, 05/05/16) adhesive (Verified Allergy, Unknown, RASH, 06/29/16) codeine (Verified Allergy, Unknown, 05/05/16) Past Hcgvkyb-Hchzin-Fbworf Hx Patient Social History Marrital Status: Employed/Student: unemployed Alcohol Use: Denies Use Recreational Drug Use: No Smoking Status: Never a Smoker 2nd Hand Smoke Exposure: No Physical Abuse Screen: No Sexual Abuse: No Recent Foreign Travel: No Contact w/other who traveled: No Recent Hopitalizations: No Recent Infectious Disease Expo: No Immunizations Up To Date Date of Pneumonia Vaccine: Jun 29, 2011 Seasonal Allergies Seasonal Allergies: Yes Surgeries HX Surgeries: Yes Surgeries: Adenoidectomy, Gallbladder, Tonsillectomy Respiratory Hx Respiratory Disorders: Yes Respiratory Disorders: Asthma Cardiovascular Hx Cardiovascular Disorders: Yes Cardiac Disorders: High Cholesterol Neurological Hx Neurological Disorders: Yes Neurological Disorders: Neuropathy Reproductive System Sexually Transmitted Disease: No HIV/AIDS: No Female Reproductive Disorders: Polycystic Ovarian Dis Genitourinary Hx Genitourinary Disorders: Yes Genitourinary Disorders: Bladder Infection Gastrointestinal Hx Gastrointestinal Disorders: No Gastrointestinal Disorders: Irritable Bowel Musculoskeletal Hx Musculoskeletal Disorders: Yes Musculoskeletal Disorders: Arthritis, Chronic Back Pain Endocrine Hx Endocrine Disorders: Yes Endocrine Disorders: Diabetes, Insulin dep, Hypothyroidsim HEENT Loss of Vision: Denies Hearing Impairment: Denies Cancer Hx Cancer: No Psychosocial Hx Psychiatric Problems: Yes Behavioral Health Disorders: Anxiety Family Medical History Significant Family History: No Pertinent Family Hx Family Hx: Cardiovascular disease 19 MOTHER, Onset:Unknown Colon cancer MATERNAL GMA, Onset:Unknown Diabetes mellitus 19 MOTHER, Onset:Unknown FH: emphysema 19 FATHER, Onset:Unknown FH: epilepsy 19 FATHER, Onset:Unknown FH: liver disease 19 FATHER, Onset:Unknown Hypertension 19 MOTHER, Onset:Unknown Kidney disease 19 FATHER, Onset:Unknown Review of Systems Constitutional: see HPI, chills, fever, weakness EENTM: no symptoms reported Respiratory: no symptoms reported Cardiovascular: no symptoms reported Gastrointestinal: no symptoms reported Genitourinary: no symptoms reported Musculoskeletal: back pain Skin: see HPI, rash Psychiatric/Neurological: Anxiety All Other Systems Reviewed Negative Unless Noted: Yes Physical Exam Physical Exam Vital Signs Vital Sign - Last 12Hours 06/28/16 16:10 Temp 99.2 Pulse 108 Resp 20 B/P (MAP) 161/86 Pulse Ox 96 O2 Delivery Room Air Capillary Refill : Less Than 3 Seconds General Appearance: No Apparent Distress, WD/WN, Obese (orbit obesity) Eyes: Bilateral Eye Normal Inspection, Bilateral Eye PERRL HEENT: PERRL/EOMI, Normal ENT Inspection, Pharynx Normal Neck: Full Range of Motion, Normal Inspection, Non Tender, Supple, Carotid Bruit Respiratory: Chest Non Tender, Lungs Clear, Normal Breath Sounds, No Accessory Muscle Use, No Respiratory Distress Cardiovascular: Regular Rate, Rhythm, No Edema, No Gallop, No JVD, No Murmur, Normal Peripheral Pulses Gastrointestinal: Normal Bowel Sounds, No Organomegaly, No Pulsatile Mass, Non Tender, Soft Back: Normal Inspection, No CVA Tenderness, No Vertebral Tenderness Extremity: Normal Capillary Refill, Normal Inspection, Normal Range of Motion, Non Tender, No Calf Tenderness, No Pedal Edema Neurologic/Psychiatric: Alert, Oriented x3, No Motor/Sensory Deficits, Normal Mood/Affect Skin: Normal Color, Warm/Dry, Rash (erythema outlined on lower pannus with improved status) Lymphatic: No Adenopathy Results Results/Procedures Lab Laboratory Tests 06/28/16 16:40 06/29/16 04:00 Assessment/Plan Admission Diagnosis Assessment: Severe pannus cellulitis at high risk for necrotizing fasciitis if progresses placed in ICU for monitoring and general surgery evaluation now able to transfer to the fourth floor Diabetes mellitus insulin-dependent Hypothyroidism Hypercholesterolemia diabetic neuropathy Assessment and Plan Plan: Transfer to fourth floor Much improved [facility] to arrange for IV antibiotics as outpatient as she is been successful with before it [facility] tomorrow Monitor closely Reconcile home meds when reviewed. Clinical Quality Measures DVT/VTE Risk/Contraindication: Risk Factor Score Per Nursin RFS Level Per Nursing on Admit: 3=High SHILOH MURRAY DO Jun 29, 2016 12:13
[2016-06-29] MEDS ORDERED: INSU100V6 SQ (12:16)
[2016-06-29] MEDS ORDERED: ATOR40TA PO (12:35)
[2016-06-29] MEDS ORDERED: METF-479 PO (12:35)
[2016-06-29] MEDS ORDERED: FUROSEMIDE 20 MG (LASIX) TAB PO PRN (13:15)
[2016-06-29] MEDS ORDERED: cefTRIAXone INJECTION 1,000 MG in NS (IVPB) 50 ML IV SCH (17:00)
[2016-06-29] MEDS: metFORMIN XR 500 MG (GLUCOPHAGE XR) TAB PO SCH (17:41)
[2016-06-29] MEDS ORDERED: inSUlin DETERMIR 1 UNIT/0.01 ML (LEVEMIR) CHARGE PER UNIT SQ SCH (21:00)
[2016-06-29] MEDS ORDERED: ATORVASTATIN 40 MG (LIPITOR) TABLET PO SCH (21:00)
[2016-06-30] VITALS: BP 140/66
[2016-06-30 04:00] VITALS: BP 130/60
[2016-06-30 04:27] LABS: BASOPHILS % (AUTO) 0 % (0-10); EOSINOPHILS % (AUTO) 0 % (0-10); LYMPHOCYTES % (AUTO) 18 % (12-44); MEAN CORPUSCULAR HEMOGLOBIN 29 PG (25-34); MEAN CORPUSCULAR HGB CONC 32 G/DL (32-36); MEAN CORPUSCULAR VOLUME 92 FL (80-99); MEAN PLATELET VOLUME 10.5 FL (7.4-10.4); MONOCYTES % (AUTO) 9 % (0-12); NEUTROPHILS # (AUTO) 8.1 X 10^3 (1.8-7.8); NEUTROPHILS % (AUTO) 73 % (42-75); PLATELET COUNT 256 10^3/uL (130-400); RED BLOOD COUNT 3.83 10^6/uL (4.35-5.85); WHITE BLOOD COUNT 11.1 10^3/uL (4.3-11.0)
[2016-06-30 04:50] LABS: ANION GAP 10 MMOL/L (5-14); BLOOD UREA NITROGEN 11 MG/DL (7-18); BUN/CREATININE RATIO 13; CALCIUM 8.6 MG/DL (8.5-10.1); CARBON DIOXIDE 24 MMOL/L (21-32); CHLORIDE 105 MMOL/L (98-107); CREATININE SERUM 0.82 MG/DL (0.60-1.30); GFR ESTIMATED > 60; GLUCOSE 153 MG/DL (70-105); POTASSIUM 4.1 MMOL/L (3.6-5.0); SODIUM 139 MMOL/L (135-145)
[2016-06-30] MEDS: CLINDAMYCIN INJECTION 600 MG in NS (IVPB) 50 ML IV SCH ×2 (06:10→13:42)
[2016-06-30] MEDS: metFORMIN XR 500 MG (GLUCOPHAGE XR) TAB PO SCH (06:11)
[2016-06-30] MEDS: inSUlin (REGULAR) HUMAN 1 UNIT/0.01 ML (CHARGE PER UNIT) SC SCH ×2 (06:11→11:29)
[2016-06-30] MEDS ORDERED: LEVOTHYROXINE 75 MCG (LEVOTHROID) TABLET PO SCH (06:30)
[2016-06-30] MEDS ORDERED: TROUGH ORDER-PHARMACY XX NR (07:00)
[2016-06-30] MEDS ORDERED: PIOGLITAZONE 30MG (ACTOS) TAB PO SCH (07:00)
--- NOTE | 2016-06-30 07:56 | Pulmonary Consultation ---
History of Present Illness History of Present Illness Date of Consultation 06/30/16 07:49 Date of Admission History of Present Illness 50yo with hx of DM and morbid obesity presented 06/28 secondary to abdominal cellulitis and fever of 103. she does have a hx of abdominal cellulitis. Allergies and Home Medications Allergies Coded Allergies: Sulfa (Sulfonamide Antibiotics) (Verified Allergy, Unknown, 05/05/16) adhesive (Verified Allergy, Unknown, RASH, 06/29/16) codeine (Verified Allergy, Unknown, 05/05/16) Home Medications Atorvastatin Calcium 40 Mg Tablet, 40 MG PO HS, (Reported) Furosemide 20 Mg Tablet, 20 MG PO PRN PRN for swelling, #30 (Reported) Insulin Glargine,Hum.rec.anlog 100 Unit/1 Ml Vial, 58 UNITS SQ DAILY, #70 ( Reported) Insulin Glargine,Hum.rec.anlog 100 Unit/1 Ml Vial, 188 UNIT SQ HS, (Reported) Levothyroxine Sodium 75 Mcg Tablet, 75 MCG PO DAILY for 30 Days, #30 (Reported) Metformin HCl 500 Mg Tablet, 500 MG PO DAILY for 30 Days, #30 (Reported) Metformin HCl 1,000 Mg Tab.er.24, 1,000 MG PO BID, (Reported) Pioglitazone HCl 30 Mg Tablet, 30 MG PO DAILY for 28 Days, #30 (Reported) Past Yopzaqq-Cpqfyk-Pasdym Hx Patient Social History Alcohol Use: Denies Use Recreational Drug Use: No Smoking Status: Never a Smoker 2nd Hand Smoke Exposure: No Recent Foreign Travel: No Contact w/Someone Who Travel: No Recent Infectious Disease Expo: No Recent Hopitalizations: No Physical Abuse Screen: No Sexual Abuse: No Immunizations Up To Date PED Vaccines UTD: No Date of Pneumonia Vaccine: Jun 29, 2011 Seasonal Allergies Seasonal Allergies: Yes Surgeries HX Surgeries: Yes Surgeries: Adenoidectomy, Gallbladder, Tonsillectomy Respiratory Hx Respiratory Disorders: Yes Respiratory Disorders: Asthma, Sleep Apnea, COPD Cardiovascular Hx Cardiac Disorders: Yes Cardiac Disorders: High Cholesterol Neurological Hx Neurological Disorders: Yes Neurological Disorders: Neuropathy Reproductive System Sexually Transmitted Disease: No HIV/AIDS: No Female Reproductive Disorders: Polycystic Ovarian Dis Genitourinary Hx Genitourinary Disorders: Yes Genitourinary Disorders: Bladder Infection Gastrointestinal Hx Gastrointestinal Disorders: No Gastrointestinal Disorders: Irritable Bowel Musculoskeletal Hx Musculoskeletal Disorders: Yes Musculoskeletal Disorders: Arthritis, Chronic Back Pain Endocrine Hx Endocrine Disorders: Yes Endocrine Disorders: Diabetes, Insulin dep, Hypothyroidsim HEENT Loss of Vision: Denies Hearing Impairment: Denies Cancer Hx Cancer: No Psychosocial Hx Psychiatric Problems: Yes Behavioral Health Disorders: Anxiety Family Medical History Significant Family History: No Pertinent Family Hx Family Medial History: Cardiovascular disease 19 MOTHER, Onset:Unknown Colon cancer MATERNAL GMA, Onset:Unknown Diabetes mellitus 19 MOTHER, Onset:Unknown FH: emphysema 19 FATHER, Onset:Unknown FH: epilepsy 19 FATHER, Onset:Unknown FH: liver disease 19 FATHER, Onset:Unknown Hypertension 19 MOTHER, Onset:Unknown Kidney disease 19 FATHER, Onset:Unknown Exam Exam Vital Signs Date Time Temp Pulse Resp B/P (MAP) Pulse Ox O2 Delivery O2 Flow Rate FiO2 06/30/16 04:00 98.2 80 20 130/60 95 Room Air 06/30/16 01:04 89 06/30/16 00:00 98.2 83 20 140/66 97 Room Air 06/29/16 20:00 99.1 88 20 135/72 95 Room Air 06/29/16 19:47 93 06/29/16 19:00 97 06/29/16 16:00 98.6 92 22 151/77 91 Room Air 06/29/16 13:00 93 06/29/16 12:30 97.8 06/29/16 11:00 105 22 161/74 96 Room Air 06/29/16 10:00 110 24 152/69 91 Room Air 06/29/16 09:00 98 22 145/77 93 Room Air 06/29/16 08:24 98.9 94 6 149/58 94 Room Air I & O 06/30/16 07:00 Intake Total 2568 ml Output Total 1700 ml Balance 868 ml General Appearance: No Apparent Distress, WD/WN, Obese (orbit obesity) HEENT: PERRL/EOMI, Normal ENT Inspection, Pharynx Normal Neck: Full Range of Motion, Normal Inspection, Non Tender, Supple, Carotid Bruit Respiratory: Chest Non Tender, Lungs Clear, Normal Breath Sounds, No Accessory Muscle Use, No Respiratory Distress Cardiovascular: Regular Rate, Rhythm, No Edema, No Gallop, No JVD, No Murmur, Normal Peripheral Pulses Capillary Refill: Less Than 3 Seconds Gastrointestinal: non tender, other (obese abdomen large pannus, firm area left lower quadrant, significant cellulitis, small sore inferior to umbilicus, cellulitis slightly improved) Extremity: Normal Capillary Refill, Normal Inspection, Normal Range of Motion, Non Tender, No Calf Tenderness, No Pedal Edema Neurologic/Psychiatric: Alert, Oriented x3, No Motor/Sensory Deficits, Normal Mood/Affect Skin: Normal Color, Warm/Dry, Rash (erythema outlined on lower pannus with improved status) Lymphatic: No Adenopathy Results Lab Laboratory Tests 06/28/16 16:40 06/29/16 04:00 06/30/16 04:10 Assessment/Plan Assessment/Plan Severe pannus cellulitis -IV Abx IDDM diabetic neuropathy Pt states she is going home today regardless of what her doctors say. Clinical Quality Measures DVT/VTE Risk/Contraindication: Risk Factor Score Per Nursin RFS Level Per Nursing on Admit: 3=High JOSETTE ESCOBAR DO Jun 30, 2016 07:56
[2016-06-30 08:00] VITALS: BP 143/66
[2016-06-30] MEDS ORDERED: inSUlin DETERMIR 1 UNIT/0.01 ML (LEVEMIR) CHARGE PER UNIT SQ SCH (09:00)
[2016-06-30] MEDS ORDERED: metFORMIN 500 MG (GLUCOPHAGE) TAB PO SCH (09:00)
--- NOTE | 2016-06-30 09:09 | Progress Note ---
Subjective Subjective/Events-last exam Patient resting in bed. Even respirations. No distress noted. Patient reports that she is better and ready to go home. No N/V. No fevers. Objective Exam Vital Signs Date Time Temp Pulse Resp B/P (MAP) Pulse Ox O2 Delivery O2 Flow Rate FiO2 06/30/16 04:00 98.2 80 20 130/60 95 Room Air 06/30/16 01:04 89 06/30/16 00:00 98.2 83 20 140/66 97 Room Air 06/29/16 20:00 99.1 88 20 135/72 95 Room Air 06/29/16 19:47 93 06/29/16 19:00 97 06/29/16 16:00 98.6 92 22 151/77 91 Room Air 06/29/16 13:00 93 06/29/16 12:30 97.8 06/29/16 11:00 105 22 161/74 96 Room Air 06/29/16 10:00 110 24 152/69 91 Room Air I & O 06/30/16 07:00 Intake Total 2568 ml Output Total 1700 ml Balance 868 ml Capillary Refill : Less Than 3 Seconds General Appearance: No Apparent Distress, WD/WN, Obese (orbit obesity) HEENT: Normal ENT Inspection, Pharynx Normal Neck: Full Range of Motion, Normal Inspection, Non Tender Respiratory: Chest Non Tender, Normal Breath Sounds, No Accessory Muscle Use, No Respiratory Distress Cardiovascular: Regular Rate, Rhythm, No Edema Gastrointestinal: non tender, other (obese abdomen large pannus, firm area left lower quadrant, small sore inferior to umbilicus, cellulitis continues to improve. ) Extremity: Non Tender, No Calf Tenderness, Swelling (BLE) Neurologic/Psychiatric: Alert, Oriented x3, No Motor/Sensory Deficits, Normal Mood/Affect Skin: Normal Color, Warm/Dry, Rash (erythema outlined on lower pannus with improved status) Results Lab Laboratory Tests Test 06/28/16 16:40 06/28/16 18:39 06/28/16 21:09 06/28/16 22:25 Range/Units White Blood Count 12.7 H 4.3-11.0 10^3/uL Red Blood Count 4.41 4.35-5.85 10^6/uL Hemoglobin 13.1 11.5-16.0 G/DL Hematocrit 40 35-52 % Mean Corpuscular Volume 91 80-99 FL Mean Corpuscular Hemoglobin 30 25-34 PG Mean Corpuscular Hemoglobin Concent 33 32-36 G/DL Red Cell Distribution Width 14.0 10.0-14.5 % Platelet Count 263 130-400 10^3/uL Mean Platelet Volume 10.5 H 7.4-10.4 FL Neutrophils (%) (Auto) 83 H 42-75 % Lymphocytes (%) (Auto) 12 12-44 % Monocytes (%) (Auto) 5 0-12 % Eosinophils (%) (Auto) 0 0-10 % Basophils (%) (Auto) 0 0-10 % Neutrophils # (Auto) 10.6 H 1.8-7.8 X 10^3 Lymphocytes # (Auto) 1.6 1.0-4.0 X 10^3 Monocytes # (Auto) 0.6 0.0-1.0 X 10^3 Eosinophils # (Auto) 0.0 0.0-0.3 10^3/uL Basophils # (Auto) 0.0 0.0-0.1 10^3/uL Sodium Level 137 135-145 MMOL/L Potassium Level 4.9 3.6-5.0 MMOL/L Chloride Level 103 98-107 MMOL/L Carbon Dioxide Level 20 L 21-32 MMOL/L Anion Gap 14 5-14 MMOL/L Blood Urea Nitrogen 15 7-18 MG/DL Creatinine 0.93 0.60-1.30 MG/DL Estimat Glomerular Filtration Rate > 60 BUN/Creatinine Ratio 16 Glucose Level 201 H 70-105 MG/DL Lactic Acid Level 2.88 *H 1.70 0.50-2.00 MMOL/L Calcium Level 9.1 8.5-10.1 MG/DL Total Bilirubin 0.7 0.1-1.0 MG/DL Aspartate Amino Transf (AST/SGOT) 22 5-34 U/L Alanine Aminotransferase (ALT/SGPT) 16 0-55 U/L Alkaline Phosphatase 89 40-136 U/L Total Protein 7.9 6.4-8.2 G/DL Albumin 3.9 3.2-4.5 G/DL Glucometer 212 H 70-110 MG/DL Urine Color YELLOW Urine Clarity CLEAR Urine pH 5 5-9 Urine Specific [place] 1.020 1.016-1.022 Urine Protein 1+ H NEGATIVE Urine Glucose (UA) NEGATIVE NEGATIVE Urine Ketones NEGATIVE NEGATIVE Urine Nitrite NEGATIVE NEGATIVE Urine Bilirubin NEGATIVE NEGATIVE Urine Urobilinogen NORMAL NORMAL MG/DL Urine Leukocyte Esterase 2+ H NEGATIVE Urine RBC (Auto) NEGATIVE NEGATIVE Urine RBC NONE /HPF Urine WBC 10-25 H /HPF Urine Squamous Epithelial Cells 25-50 H /HPF Urine Crystals NONE /LPF Urine Bacteria LARGE H /HPF Urine Casts NONE /LPF Urine Mucus NEGATIVE /LPF Urine Culture Indicated YES Test 06/29/16 04:00 06/29/16 11:46 06/29/16 17:29 06/29/16 20:49 Range/Units White Blood Count 10.7 4.3-11.0 10^3/uL Red Blood Count 4.04 L 4.35-5.85 10^6/uL Hemoglobin 12.0 11.5-16.0 G/DL Hematocrit 37 35-52 % Mean Corpuscular Volume 92 80-99 FL Mean Corpuscular Hemoglobin 30 25-34 PG Mean Corpuscular Hemoglobin Concent 32 32-36 G/DL Red Cell Distribution Width 13.8 10.0-14.5 % Platelet Count 255 130-400 10^3/uL Mean Platelet Volume 10.5 H 7.4-10.4 FL Neutrophils (%) (Auto) 75 42-75 % Lymphocytes (%) (Auto) 17 12-44 % Monocytes (%) (Auto) 8 0-12 % Eosinophils (%) (Auto) 0 0-10 % Basophils (%) (Auto) 0 0-10 % Neutrophils # (Auto) 8.0 H 1.8-7.8 X 10^3 Lymphocytes # (Auto) 1.8 1.0-4.0 X 10^3 Monocytes # (Auto) 0.8 0.0-1.0 X 10^3 Eosinophils # (Auto) 0.0 0.0-0.3 10^3/uL Basophils # (Auto) 0.0 0.0-0.1 10^3/uL Sodium Level 138 135-145 MMOL/L Potassium Level 3.9 3.6-5.0 MMOL/L Chloride Level 103 98-107 MMOL/L Carbon Dioxide Level 24 21-32 MMOL/L Anion Gap 11 5-14 MMOL/L Blood Urea Nitrogen 15 7-18 MG/DL Creatinine 0.92 0.60-1.30 MG/DL Estimat Glomerular Filtration Rate > 60 BUN/Creatinine Ratio 16 Glucose Level 216 H 70-105 MG/DL Calcium Level 8.8 8.5-10.1 MG/DL Phosphorus Level 3.7 2.3-4.7 MG/DL Magnesium Level 1.5 L 1.8-2.4 MG/DL Glucometer 314 H 260 H 268 H 70-110 MG/DL Test 06/30/16 04:10 06/30/16 07:20 Range/Units White Blood Count 11.1 H 4.3-11.0 10^3/uL Red Blood Count 3.83 L 4.35-5.85 10^6/uL Hemoglobin 11.2 L 11.5-16.0 G/DL Hematocrit 35 35-52 % Mean Corpuscular Volume 92 80-99 FL Mean Corpuscular Hemoglobin 29 25-34 PG Mean Corpuscular Hemoglobin Concent 32 32-36 G/DL Red Cell Distribution Width 14.0 10.0-14.5 % Platelet Count 256 130-400 10^3/uL Mean Platelet Volume 10.5 H 7.4-10.4 FL Neutrophils (%) (Auto) 73 42-75 % Lymphocytes (%) (Auto) 18 12-44 % Monocytes (%) (Auto) 9 0-12 % Eosinophils (%) (Auto) 0 0-10 % Basophils (%) (Auto) 0 0-10 % Neutrophils # (Auto) 8.1 H 1.8-7.8 X 10^3 Lymphocytes # (Auto) 2.0 1.0-4.0 X 10^3 Monocytes # (Auto) 1.0 0.0-1.0 X 10^3 Eosinophils # (Auto) 0.0 0.0-0.3 10^3/uL Basophils # (Auto) 0.0 0.0-0.1 10^3/uL Sodium Level 139 135-145 MMOL/L Potassium Level 4.1 3.6-5.0 MMOL/L Chloride Level 105 98-107 MMOL/L Carbon Dioxide Level 24 21-32 MMOL/L Anion Gap 10 5-14 MMOL/L Blood Urea Nitrogen 11 7-18 MG/DL Creatinine 0.82 0.60-1.30 MG/DL Estimat Glomerular Filtration Rate > 60 BUN/Creatinine Ratio 13 Glucose Level 153 H 70-105 MG/DL Calcium Level 8.6 8.5-10.1 MG/DL Vancomycin Level Trough 11.9 10.0-20.0 UG/ML Laboratory Tests 06/29/16 11:46: Glucometer 314H 06/29/16 17:29: Glucometer 260H 06/29/16 20:49: Glucometer 268H 06/30/16 04:10: White Blood Count 11.1H, Red Blood Count 3.83L, Hemoglobin 11.2L, Hematocrit 35 , Mean Corpuscular Volume 92, Mean Corpuscular Hemoglobin 29, Mean Corpuscular Hemoglobin Concent 32, Red Cell Distribution Width 14.0, Platelet Count 256, Mean Platelet Volume 10.5H, Neutrophils (%) (Auto) 73, Lymphocytes (%) (Auto) 18 , Monocytes (%) (Auto) 9, Eosinophils (%) (Auto) 0, Basophils (%) (Auto) 0, Neutrophils # (Auto) 8.1H, Lymphocytes # (Auto) 2.0, Monocytes # (Auto) 1.0, Eosinophils # (Auto) 0.0, Basophils # (Auto) 0.0, Sodium Level 139, Potassium Level 4.1, Chloride Level 105, Carbon Dioxide Level 24, Anion Gap 10, Blood Urea Nitrogen 11, Creatinine 0.82, Estimat Glomerular Filtration Rate > 60, BUN/ Creatinine Ratio 13, Glucose Level 153H, Calcium Level 8.6 06/30/16 07:20: Vancomycin Level Trough 11.9 Microbiology 06/28/16 Blood Culture - Preliminary, Resulted No growth 06/28/16 Urine Culture - Preliminary, Resulted Assessment/Plan Assessment/Plan Assessment/Plan cellulitis of pannus, sepsis WBC slightly elevated this am. DM continue abx cellulitis is outlined and continues to improve on sliding scale for blood sugars no surgical intervention at this time. Ac- patient with no new complaints, states going home no matter what today. Denies n/v fever sweats chills shortness of breath or chest pain. general no acute distress heart reg lungs nonlabored abdomen pannus still with erythematous changes, about the same as yesterday ext nontender assessment as above blood sugars were slightly higher yesterday, discussed need tight glucose control. no surgical intervention at this time. Clinical Quality Measures DVT/VTE Risk/Contraindication: Risk Factor Score Per Nursin RFS Level Per Nursing on Admit: 3=High NWAGWU,ISIDORE O [employer] Jun 30, 2016 09:09 ROXANA AC DO Jun 30, 2016 14:23
[2016-06-30] MEDS: VANCOMYCIN INJECTION 2,000 MG in NS IV 500 ML 500 ML IV SCH (10:13)
[2016-06-30 12:00] VITALS: BP 141/73
[2016-06-30] MEDS ORDERED: ATOR40TA70 PO (12:13)
[2016-06-30] MEDS ORDERED: PIOG30TA26 PO (12:13)
[2016-06-30] MEDS ORDERED: CLIN300C11 PO ×2 (14:02→14:07)
[2016-06-30 15:29] VITALS: BP 141/73
== END 2016-06-30 14:24 | disposition home or self-care (01) | DRG 603 ==
LOC: EDUNIT# 15:46 → ER 15:47 → ICU 17:41 → ENPENDDIS 06-30 14:25
PROVIDERS: ADMIT Internal Medicine; ATTEND Internal Medicine
DX: L03.311 Cellulitis of abdominal wall (principal); E66.01 Morbid (severe) obesity due to excess calories; Z68.45 Body mass index [BMI] 70 or greater, adult; J44.9 Chronic obstructive pulmonary disease, unspecified; J45.909 Unspecified asthma, uncomplicated; E78.00 Pure hypercholesterolemia, unspecified; E11.40 Type 2 diabetes mellitus with diabetic neuropathy, unspecified; E03.9 Hypothyroidism, unspecified; F41.9 Anxiety disorder, unspecified; Z79.4 Long term (current) use of insulin
CPT/HCPCS: 36415; 71010; 76999; 80048; 80053; 80202; 81000; 82962; 83605; 83735; 84100; 85025; 87040; 87081; 87088; 94640; 96365; 96367

== ENCOUNTER 2017-05-04 13:15 | Emergency (ER) | payer MEDICAID ==
[~2017-05-04] VITALS: Ht 162.6 cm; Wt 240.4 kg
[~2017-05-04 13:15] MED LIST changes: +ATOR40TA PO; +ATOR40TA70 PO; +CLIN300C11 PO; +METF-479 PO; +PIOG30TA26 PO
--- OUTSIDE RECORDS SUMMARY | 2017-05-04 13:22 | XMS REPORT | Continuity of Care Document ---
Author Author [facility] Address Unknown Phone Unavailable Allergies Active Description Code Type Severity Reaction Onset Reported/Identified Relationship to Patient Clinical Status Yes Bandaid Adhesive OA N/A N/A 02/08/2013 Yes codeine Drug Allergy N/A N/A 02/08/2013 Yes Sulfa (Sulfonamide Antibiotics) Drug Allergy N/A N/A 02/08/2013 Yes fluoxetine 20 mg capsule Drug Allergy N/A N/A 05/18/2013 Medications There is no data. Problems Date Dx Coded Attending Type Code Diagnosis Diagnosed By 02/08/2013 PERLA BERNAL DO 244.9 HYPOTHYROIDISM 02/08/2013 PERLA BERNAL DO K 250.60 DIABETES W/ NEUROPATHY; DM TYPE 2 02/08/2013 PERLA BERNAL DO K 493.90 ASTHMA UNSPECIFIED 02/08/2013 VERN BERNAL DOA K 244.9 HYPOTHYROIDISM 02/08/2013 VERN BERNAL DOA K 250.60 DIABETES W/ NEUROPATHY; DM TYPE 2 02/08/2013 VERN BERNAL DOA K 493.90 ASTHMA UNSPECIFIED 02/08/2013 VERN BERNAL DOA K 244.9 HYPOTHYROIDISM 02/08/2013 VERN BERNAL DOA K 250.60 DIABETES W/ NEUROPATHY; DM TYPE 2 02/08/2013 VERN BERNAL DOA K 493.90 ASTHMA UNSPECIFIED 02/08/2013 GIANLUCA GARCIA APRN 244.9 HYPOTHYROIDISM 02/08/2013 GIANLUCA GARCIA APRN 250.60 DIABETES W/ NEUROPATHY; DM TYPE 2 02/08/2013 GIANLUCA GARCIA APRN 493.90 ASTHMA UNSPECIFIED 02/08/2013 PERLA BERNAL DO K 244.9 HYPOTHYROIDISM 02/08/2013 VERN BERNAL DOA K 250.60 DIABETES W/ NEUROPATHY; DM TYPE 2 02/08/2013 PERLA BERNAL DO K 493.90 ASTHMA UNSPECIFIED 02/08/2013 GIANLUCA GARCIA APRN 244.9 HYPOTHYROIDISM 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, 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 250.60 DIABETES W/ NEUROPATHY; DM TYPE 2 02/08/2013 GARCIA GIANLUCA CRUZ R 493.90 ASTHMA UNSPECIFIED 02/08/2013 BERNAL DO, PERLA K 244.9 HYPOTHYROIDISM 02/08/2013 BERNAL DO, PERLA K 250.60 DIABETES W/ NEUROPATHY; DM TYPE 2 02/08/2013 BERNAL DO, PERLA K 493.90 ASTHMA UNSPECIFIED 02/08/2013 BERNAL DO, PERLA K 244.9 HYPOTHYROIDISM 02/08/2013 BERNAL DO, PERLA K 250.60 DIABETES W/ NEUROPATHY; DM TYPE 2 02/08/2013 BERNAL DO, PERLA K 493.90 ASTHMA UNSPECIFIED 02/08/2013 GARCIA GIANLUCA CRUZ R 244.9 HYPOTHYROIDISM 02/08/2013 GARCIA GIANLUCA CRUZ R 250.60 DIABETES W/ NEUROPATHY; DM TYPE 2 02/08/2013 GIANLUCA GARCIA APRN R 493.90 ASTHMA UNSPECIFIED 02/08/2013 BERNAL DO, PERLA K 244.9 HYPOTHYROIDISM 02/08/2013 BERNAL DO, PERLA K 250.60 DIABETES W/ NEUROPATHY; DM TYPE 2 02/08/2013 BERNAL DO, PERLA K 493.90 ASTHMA UNSPECIFIED 02/08/2013 GIANLUCA GARCIA APRN R 244.9 HYPOTHYROIDISM 02/08/2013 GIANLUCA GARCIA APRN R 250.60 DIABETES W/ NEUROPATHY; DM TYPE 2 02/08/2013 GIANLUCA GARCIA APRN R 493.90 ASTHMA UNSPECIFIED 02/08/2013 BERNAL DO, PERLA K 244.9 HYPOTHYROIDISM 02/08/2013 BERNAL DO, PERLA K 250.60 DIABETES W/ NEUROPATHY; DM TYPE 2 02/08/2013 BERNAL DO, PERLA K 493.90 ASTHMA UNSPECIFIED 02/08/2013 BERNAL DO, PERLA K 244.9 HYPOTHYROIDISM 02/08/2013 BERNAL DO, PERLA K 250.60 DIABETES W/ NEUROPATHY; DM TYPE 2 02/08/2013 BERNAL DO, PERLA K 493.90 ASTHMA UNSPECIFIED 02/08/2013 BERNAL DO, PERLA K 244.9 HYPOTHYROIDISM 02/08/2013 BERNAL DO, PERLA K 250.60 DIABETES W/ NEUROPATHY; DM TYPE 2 02/08/2013 BERNAL DO, PERLA K 493.90 ASTHMA UNSPECIFIED 02/08/2013 BERNAL DO, PERLA K 244.9 HYPOTHYROIDISM 02/08/2013 BERNAL DO, PERLA K 250.60 DIABETES W/ NEUROPATHY; DM TYPE 2 02/08/2013 GABE METZGER PERLA K 493.90 ASTHMA UNSPECIFIED 04/20/2013 BERNAL DO, PERLA K 311 DEPRESSIVE DISORDER NOS 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, 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 R 311 DEPRESSIVE DISORDER NOS 04/20/2013 BERNAL DO, PERLA K 311 DEPRESSIVE DISORDER NOS 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, 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 R 311 DEPRESSIVE DISORDER NOS 04/20/2013 BERNAL DO, PERLA K 311 DEPRESSIVE DISORDER NOS 04/20/2013 BERNAL DO, PERLA K 311 DEPRESSIVE DISORDER NOS 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, 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 R 311 DEPRESSIVE DISORDER NOS 04/20/2013 BERNAL DO, PERLA K 311 DEPRESSIVE DISORDER NOS 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, 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 R 311 DEPRESSIVE DISORDER NOS 04/20/2013 BERNAL DO, PERLA K 311 DEPRESSIVE DISORDER NOS 04/20/2013 BERNAL DO, PERLA K 311 DEPRESSIVE DISORDER NOS 04/20/2013 BERNAL DO, PERLA K 311 DEPRESSIVE DISORDER NOS 04/20/2013 BERNAL DO, PERLA K 311 DEPRESSIVE DISORDER NOS 12/14/2013 GABE METZGER PERLA K 009.1 GASTROENTERITIS, ACUTE INFECTIOUS 12/14/2013 GABE METZGER, PERLA K 009.1 GASTROENTERITIS, ACUTE INFECTIOUS 12/14/2013 BERNAL , PERLA K 009.1 GASTROENTERITIS, ACUTE INFECTIOUS 12/14/2013 BERNAL , PERLA K 009.1 GASTROENTERITIS, ACUTE INFECTIOUS 12/20/2013 GABE METZGER PERLA K 256.4 POLYCYSTIC OVARIES 12/20/2013 VERN BERNAL DOA K 278.01 MORBID OBESITY 12/20/2013 VERN BERNAL DOA K 626.0 ABSENCE OF MENSTRUATION 12/20/2013 VERN BERNAL DOA K V73.81 HPV SCREENING 12/20/2013 VERN BERNAL DOA K V74.5 STD SCREEN 12/20/2013 GABE METZGER PERLA K V76.10 BREAST CANCER SCREENING 12/20/2013 VERN BERNAL DOA K V76.2 CERVICAL CANCER SCREENING (PAP SMEAR) 12/20/2013 GABE METZGER PERLA K 256.4 POLYCYSTIC OVARIES 12/20/2013 GABE METZGER PERLA K 278.01 MORBID OBESITY 12/20/2013 GABE METZGER PERLA K 626.0 ABSENCE OF MENSTRUATION 12/20/2013 VERN BERNAL DOA K V73.81 HPV SCREENING 12/20/2013 PERLA BERNAL DO V74.5 STD SCREEN 12/20/2013 PERLA BERNAL DO V76.10 BREAST CANCER SCREENING 12/20/2013 PERLA BERNAL DO V76.2 CERVICAL CANCER SCREENING (PAP SMEAR) 12/20/2013 PERLA BERNAL DO 256.4 POLYCYSTIC OVARIES 12/20/2013 PERLA BERNAL DO 278.01 MORBID OBESITY 12/20/2013 PERLA BERNAL DO 626.0 ABSENCE OF MENSTRUATION 12/20/2013 PERLA BERNAL DO V73.81 HPV SCREENING 12/20/2013 PERLA BERNAL DO V74.5 STD SCREEN 12/20/2013 PERLA BERNAL DO V76.10 BREAST CANCER SCREENING 12/20/2013 PERLA BERNAL DO V76.2 CERVICAL CANCER SCREENING (PAP SMEAR) 12/20/2013 PERLA BERNAL DO 256.4 POLYCYSTIC OVARIES 12/20/2013 PERLA BERNAL DO 278.01 MORBID OBESITY 12/20/2013 PERLA BERNAL DO 626.0 ABSENCE OF MENSTRUATION 12/20/2013 PERLA BERNAL DO V73.81 HPV SCREENING 12/20/2013 PERLA BERNAL DO V74.5 STD SCREEN 12/20/2013 PERLA BERNAL DO V76.10 BREAST CANCER SCREENING 12/20/2013 PERLA BERNAL DO V76.2 CERVICAL CANCER SCREENING (PAP SMEAR) 01/11/2014 PERLA BERNAL DO 789.09 ABDOMINAL PAIN OTHER SPECIFIED SITE 01/11/2014 PERLA BERNAL DO 789.09 ABDOMINAL PAIN OTHER SPECIFIED SITE 01/11/2014 PERLA BERNAL DO 789.09 ABDOMINAL PAIN OTHER SPECIFIED SITE 02/08/2014 PERLA BERNAL DO V04.81 FLU SHOT 02/08/2014 PERLA BERNAL DO V04.81 FLU SHOT Procedures Code [place] [address] ROUTINE VENIPUNCTURE 03/21/2013 65396 A1C (IN-HOUSE) 03/21/2013 52883 CBC 03/21/2013 60479 CMP 03/21/2013 81327 LIPID PANEL 03/21/2013 3612819 GFR CALC (RESULT ONLY) 03/21/2013 62393 TSH 03/21/2013 78229 UA LONG DIP 06/15/2013 67584 A1C (IN-HOUSE) 06/15/2013 04018 MICRO ALBUMIN-IN HOUSE 06/15/2013 48164 A1C (IN-HOUSE) 10/05/2013 41382 MAMMOGRAM, SCREENING 12/20/2013 86933 GC/CHLAM PROBE ([facility]) 12/20/2013 Q0091 PAP SMEAR OBTAIN SMEAR 12/20/2013 97607 TRICHOMONAS (IN-HOUSE) 12/20/2013 23413 PAP SMEAR 12/22/2013 62444 CULTURE UROGENITAL 12/23/2013 22270 UA LONG DIP 01/11/2014 80358 A1C (IN-HOUSE) 02/08/2014 23799 ROUTINE VENIPUNCTURE 06/14/2014 12346 A1C (IN-HOUSE) 06/14/2014 8696145 GFR CALC (RESULT ONLY) 06/14/2014 17975 CMP 06/14/2014 50060 LIPID PANEL 06/14/2014 64235 TSH 06/14/2014 Results There is no data. Encounters ACCT No. Visit Date/Time Discharge Status Pt. Type Provider Facility Loc./Unit Complaint [id number] 06/14/2014 10:54:00 06/14/2014 23:59:59 CLS Outpatient PERLA BERNAL DO [id number] 02/08/2014 10:47:00 02/08/2014 23:59:59 CLS Outpatient PERLA BERNAL DO [id number] 01/11/2014 10:44:00 01/11/2014 23:59:59 CLS Outpatient PERLA BERNAL DO [id number] 12/20/2013 11:02:00 12/20/2013 23:59:59 CLS Outpatient PERLA BERNAL DO [id number] 10/05/2013 10:59:00 10/05/2013 23:59:59 CLS Outpatient GIANLUCA GARCIA APRN [id number] 10/05/2013 10:59:00 10/05/2013 23:59:59 CLS Outpatient PERLA BERNAL DO [id number] 09/07/2013 10:54:00 09/07/2013 23:59:59 CLS Outpatient GIANLUCA GARCIA APRN [id number] 08/10/2013 10:59:00 08/10/2013 23:59:59 CLS Outpatient PERLA BERNAL DO [id number] 07/13/2013 10:29:00 07/13/2013 23:59:59 CLS Outpatient PERLA BERNAL DO [id number] 06/15/2013 09:36:00 06/15/2013 23:59:59 CLS Outpatient PERLA BERNAL DO [id number] 06/15/2013 09:36:00 06/15/2013 23:59:59 CLS Outpatient GIANLUCA GARCIA APRN [id number] 05/18/2013 10:41:00 05/18/2013 23:59:59 CLS Outpatient GIANLUCA GARCIA APRN [id number] 04/20/2013 10:21:00 04/20/2013 23:59:59 CLS Outpatient PERLA BERNAL DO [id number] 03/21/2013 12:22:00 03/21/2013 23:59:59 CLS Outpatient PERLA BERNAL DO [id number] 02/08/2013 13:26:00 02/08/2013 23:59:59 CLS Outpatient PERLA BERNAL DO
[2017-05-04] MEDS ORDERED: RT-ALBUTEROL/IPRATROPIUM 3 ML (DUONEB) VIAL INH ONE (14:30)
--- NOTE | 2017-05-04 14:30 | ED GI ---
General Chief Complaint: Abdominal/GI Problems Stated Complaint: SOB,ABDOMINAL DISTENTION Nursing Triage Note: PT TO ROOM 7 PER W/C PT CO OF ABD PAIN AND DISTENTION, AND SOA SINCE LAST WEEK Sepsis Screen: No Definite Risk Source of Information: Patient Exam Limitations: No Limitations History of Present Illness Date Seen by Provider: May 04, 2017 Time Seen by Provider: 14:18 Initial Comments Patient presents to ER by private conveyance with a chief complaint for the past one days she's been noticing some increased swelling in her abdomen. She has a history of gravity dependent edema for which she uses 40 mg Lasix a day however she is not always taking this. She usually says she gets swelling in her ankles however this time the swelling is more in her pannus. She says she's had cellulitis in her pannus before but this is not the same. She says she was listening to her own heart rate with her own stethoscope and noticed that her heart was beating fast. She does not have a direct history of coronary disease or heart failure. She does not follow up with sexual health physician. She does have her follow with her own doctor and plan to get into her own doctor to be seen but took over a week to get an appointment so she came here instead. She says the swelling in her abdomen has made it harder for her to walk because he gets in the way of ambulating. She does endorse mild shortness of breath worse with walking. She is not having any red skin, swelling in her ankles or calves or pain on walking. She does have a cough which is sometimes productive. She thinks she has bronchitis but has not been under the care of any physician for this round. She has not had any fever. She does have a history of asthma and COPD for which she occasionally uses breathing treatments. Allergies and Home Medications Allergies Coded Allergies: Sulfa (Sulfonamide Antibiotics) (Verified Allergy, Unknown, 05/05/16) adhesive (Verified Allergy, Unknown, RASH, 06/29/16) codeine (Verified Allergy, Unknown, 05/05/16) Home Medications Atorvastatin Calcium 40 Mg Tablet, 40 MG PO HS, (Reported) Furosemide 20 Mg Tablet, 20 MG PO PRN PRN for FLUID RETENTION, (Reported) Insulin Glargine,Hum.rec.anlog 100 Unit/1 Ml Vial, 58 UNITS SQ DAILY, (Reported) Insulin Glargine,Hum.rec.anlog 100 Unit/1 Ml Vial, 188 UNIT SQ HS, (Reported) Levothyroxine Sodium 75 Mcg Tablet, 75 MCG PO DAILY, (Reported) Metformin HCl 500 Mg Tablet, 500 MG PO DAILY@1700, (Reported) TAKES ALONG WITH METFORMIN 1,000 MG Metformin HCl 1,000 Mg Tab.er.24, 1,000 MG PO BID, (Reported) TAKES ALONG WITH METFORMIN 500 MG Pioglitazone HCl 30 Mg Tablet, 30 MG PO DAILY, (Reported) Review of Systems Constitutional: No chills, No diaphoresis, fever, No malaise Respiratory: Cough (prod), Shortness of Air Cardiovascular: Denies Chest Pain, Edema, Denies Irregular Heart Rate, Palpitations, Denies Syncope Gastrointestinal: Denies Constipated, Denies Diarrhea, Denies Nausea Genitourinary: Denies Burning, Denies Discharge Musculoskeletal: No back pain, No joint pain Skin: No pruritus, No rash Psychiatric/Neurological: Denies Headache, Denies Numbness, Denies Paresthesia Past Zcblywm-Ohreas-Gbtbkk Hx Patient Social History Alcohol Use: Regular Use Alcohol Beverage of Choice: Beer, [place] Recreational Drug Use: No Smoking Status: Never a Smoker 2nd Hand Smoke Exposure: Yes Recent Foreign Travel: No Contact w/Someone Who Travel: No Recent Infectious Disease Expo: No Recent Hopitalizations: No Immunizations Up To Date PED Vaccines UTD: No Date of Pneumonia Vaccine: Jun 29, 2011 Seasonal Allergies Seasonal Allergies: Yes Surgeries History of Surgeries: Yes Surgeries: Adenoidectomy, Gallbladder, Tonsillectomy Respiratory History of Respiratory Disorde: Yes Respiratory Disorders: Asthma, Sleep Apnea, COPD Currently Using CPAP: No Currently Using BIPAP: No Cardiovascular History of Cardiac Disorders: No Cardiac Disorders: High Cholesterol Neurological History of Neurological Disord: No Neurological Disorders: Neuropathy Reproductive System Sexually Transmitted Disease: No HIV/AIDS: No Female Reproductive Disorders: Polycystic Ovarian Dis Genitourinary History of Genitourinary Disor: Yes Genitourinary Disorders: Bladder Infection Gastrointestinal History of Gastrointestinal Di: Yes Gastrointestinal Disorders: Irritable Bowel Musculoskeletal History of Musculoskeletal Dis: Yes Musculoskeletal Disorders: Arthritis, Chronic Back Pain Endocrine History of Endocrine Disorders: Yes Endocrine Disorders: Diabetes, Insulin dep, Hypothyroidsim HEENT Loss of Vision: Denies Hearing Impairment: Denies Cancer History of Cancer: No Psychosocial History of Psychiatric Problem: Yes Behavioral Health Disorders: Anxiety Integumentary History of Skin or Integumenta: Yes (CELLULITIS) Blood Transfusions History of Blood Disorders: No Family Medical History Significant Family History: No Pertinent Family Hx Family Medial History: Cardiovascular disease 19 MOTHER, Onset:Unknown Colon cancer MATERNAL GMA, Onset:Unknown Diabetes mellitus 19 MOTHER, Onset:Unknown FH: emphysema 19 FATHER, Onset:Unknown FH: epilepsy 19 FATHER, Onset:Unknown FH: liver disease 19 FATHER, Onset:Unknown Hypertension 19 MOTHER, Onset:Unknown Kidney disease 19 FATHER, Onset:Unknown Physical Exam Vital Signs VS - Last 72 Hours, by Label 05/04/17 05/04/17 13:20 15:12 Temp 97.2 Pulse 111 Resp 24 B/P (MAP) 132/87 (102) Pulse Ox 92 98 O2 Delivery Room Air Room Air Capillary Refill : Less Than 3 Seconds General Appearance: no apparent distress, obese (morbidly) HEENT: PERRL/EOMI, normal ENT inspection, TMs normal, pharynx normal Respiratory: chest non-tender, lungs clear, normal breath sounds, no respiratory distress, no accessory muscle use, other (occasional nonproductive cough) Cardiovascular: normal peripheral pulses, regular rate, rhythm, other (pannus with bilateral 2+ pitting edema and left pedal 1+ eating edema and trace right pedal edema) Peripheral Pulses: 2+ Radial Pulses (R), 2+ Radial Pulses (L) Gastrointestinal: normal bowel sounds, non tender, soft, other (tense swelling in the pannus.) Extremities: non-tender, no calf tenderness, normal capillary refill Neurologic/Psychiatric: alert, oriented x 3 Skin: normal color, warm/dry, other (abrasions on the pannus and some old ecchymosis from injection sites of insulin.) Progress/Results/Core Measures Results/Orders Lab Results Laboratory Tests Test 05/04/17 13:35 05/04/17 14:31 Range/Units White Blood Count 9.2 4.3-11.0 10^3/uL Red Blood Count 3.87 L 4.35-5.85 10^6/uL Hemoglobin 11.8 11.5-16.0 G/DL Hematocrit 36 35-52 % Mean Corpuscular Volume 94 80-99 FL Mean Corpuscular Hemoglobin 31 25-34 PG Mean Corpuscular Hemoglobin Concent 33 32-36 G/DL Red Cell Distribution Width 13.7 10.0-14.5 % Platelet Count 326 130-400 10^3/uL Mean Platelet Volume 10.4 7.4-10.4 FL Neutrophils (%) (Auto) 74 42-75 % Lymphocytes (%) (Auto) 18 12-44 % Monocytes (%) (Auto) 7 0-12 % Eosinophils (%) (Auto) 1 0-10 % Basophils (%) (Auto) 0 0-10 % Neutrophils # (Auto) 6.8 1.8-7.8 X 10^3 Lymphocytes # (Auto) 1.6 1.0-4.0 X 10^3 Monocytes # (Auto) 0.7 0.0-1.0 X 10^3 Eosinophils # (Auto) 0.1 0.0-0.3 10^3/uL Basophils # (Auto) 0.0 0.0-0.1 10^3/uL Sodium Level 140 135-145 MMOL/L Potassium Level 4.1 3.6-5.0 MMOL/L Chloride Level 103 98-107 MMOL/L Carbon Dioxide Level 23 21-32 MMOL/L Anion Gap 14 5-14 MMOL/L Blood Urea Nitrogen 19 H 7-18 MG/DL Creatinine 0.86 0.60-1.30 MG/DL Estimat Glomerular Filtration Rate > 60 BUN/Creatinine Ratio 22 Glucose Level 196 H 70-105 MG/DL Calcium Level 8.8 8.5-10.1 MG/DL Magnesium Level 1.6 L 1.8-2.4 MG/DL Total Bilirubin 0.7 0.1-1.0 MG/DL Aspartate Amino Transf (AST/SGOT) 16 5-34 U/L Alanine Aminotransferase (ALT/SGPT) 19 0-55 U/L Alkaline Phosphatase 96 40-136 U/L Troponin I < 0.30 <0.30 NG/ML C-Reactive Protein High Sensitivity 1.92 H 0.00-0.50 MG/DL B-Type Natriuretic Peptide 11.0 <100.0 PG/ML Total Protein 7.5 6.4-8.2 GM/DL Albumin 3.8 3.2-4.5 GM/DL Urine Color YELLOW Urine Clarity CLEAR Urine pH 5 5-9 Urine Specific [place] 1.025 H 1.016-1.022 Urine Protein 3+ H NEGATIVE Urine Glucose (UA) NEGATIVE NEGATIVE Urine Ketones NEGATIVE NEGATIVE Urine Nitrite POSITIVE H NEGATIVE Urine Bilirubin 1+ H NEGATIVE Urine Urobilinogen 1 NORMAL MG/DL Urine Leukocyte Esterase 3+ H NEGATIVE Urine RBC (Auto) 1+ H NEGATIVE Urine RBC 0-2 /HPF Urine WBC 5-10 H /HPF Urine Squamous Epithelial Cells 0-2 /HPF Urine Crystals NONE /LPF Urine Bacteria MODERATE H /HPF Urine Casts NONE /LPF Urine Mucus NEGATIVE /LPF Urine Culture Indicated YES My Orders Orders - NIC LYN Chest 1 View, Ap/Pa Only (05/04/17 14:24) Albuterol/Ipra Inhalation Soln (Duoneb I (05/04/17 14:30) Troponin I (05/04/17 14:24) Ekg Tracing (05/04/17 14:24) Monitor-Rhythm Ecg Trace Only (05/04/17 14:24) BNP (05/04/17 14:24) Cbc With Automated Diff (05/04/17 14:24) Comprehensive Metabolic Panel (05/04/17 14:24) Hs C Reactive Protein (05/04/17 14:24) Magnesium (05/04/17 14:24) Ua Culture If Indicated (05/04/17 14:24) Svn Sm Volume Nebulizer Rt-Rfs (05/04/17 14:24) Furosemide Injection (Lasix Injection) (05/04/17 15:00) Urine Culture (05/04/17 14:31) Medications Given in ED Current Medications Medications Dose Ordered Sig/Zack Route Start Time Stop Time Status Last Admin Dose Admin Albuterol/ Ipratropium 3 ml ONCE ONCE INH 05/04/17 14:30 05/04/17 14:31 DC 05/04/17 15:11 3 ML Furosemide 40 mg ONCE ONCE IVP 05/04/17 15:00 05/04/17 15:01 DC 05/04/17 15:04 40 MG Vital Signs/I&O Vital Sign - Last 12Hours 05/04/17 05/04/17 13:20 15:12 Temp 97.2 Pulse 111 Resp 24 B/P (MAP) 132/87 (102) Pulse Ox 92 98 O2 Delivery Room Air Room Air Blood Pressure Mean: 102 Progress Note #1: Time: 14:54 Progress Note No history of heart failure chest pain just palpitations and increased dependent edema. Not sure if this is related to her use of Lasix or not. We'll give her a dose of IV 40 mg Lasix which we twice what she is used to getting and check a BNP and other evidence of inflammation, bronchitis, pneumonia, heart failure. Progress Note #2: Time: 15:30 Progress Note After the breathing treatment the patient remarks that the pressure she is feeling on her chest has removed. She says she is breathing much better coughing up some clear and yellow brown phlegm. We'll going to treat her UTI with Keflex. We'll hold off any steroids until she gets her UTI under control. She has a follow-up appointment early set with her primary care physician in 2 days, Thursday and which she can get more IM Lasix if she needs it. I instructed her to double up her Lasix tomorrow. ECG Initial ECG Impression Date: May 04, 2017 Initial ECG Impression Time: 14:36 Initial ECG Rate: 89 Initial ECG Rhythm: Normal Sinus Initial ECG Intervals: Normal Initial ECG Impression: Normal Initial ECG Comparisson: No Previous ECG Available Comment No ST segment elevation or depression Diagnostic Imaging Diagonstic Imaging: Xray Plain Films/CT/US/NM/MRI: chest Comments VIA [facility] [place], [place] NAME: MOISÉS SOLANO [facility] REC#: [id number] PT STATUS: REG ER : 1965 PHYSICIAN: NIC LYN MD ADMIT DATE: 05/04/17/ER Draft Date of Exam:05/04/17 CHEST 1 VIEW, AP/PA ONLY INDICATION: Chest pain. Frontal chest obtained at 2:51 p.m. and compared to 06/29/2016. FINDINGS: There is marked cardiomegaly. There is central vascular congestion. There is limitation of the study due to technique and body habitus. There is no definite consolidation or pleural fluid. IMPRESSION: Limited study. Prominent cardiomegaly with central vascular congestion. No definite consolidation or pleural fluid. Dictated on workstation # [id number] Dict: 05/04/17 1459 Trans: 05/04/17 1505 [id number] Interpreted by: RICHARD DOUGLASS MD Electronically signed by: Reviewed: Reviewed by Me Departure Impression Impression: Primary Impression: Urinary tract infection Qualified Codes: N30.01 - Acute cystitis with hematuria Additional Impression: Fluid retention in tissues Qualified Codes: R60.0 - Localized edema Disposition: 01 HOME, SELF-CARE Condition: Improved Departure-Patient Inst. Decision time for Depature: 15:32 Referrals: [facility] (PCP/Family) Primary Care Physician Patient Instructions: Acute Cystitis (DC) Add. Discharge Instructions: Drink some fluids so as to flush her kidneys out. Tomorrow double up her dose of Lasix and then follow up the following day with your primary care physician. If you're still having hard time with fluid retention they can give you a shot of Lasix in the clinic. If your chest becomes painful or short of breath or difficulty breathing he should return to the ER. 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 All discharge instructions reviewed with patient and/or family. Voiced understanding. Scripts Cephalexin (Cephalexin) 500 Mg Tablet 500 MG PO BID for 7 Days, #14 TAB 0 Refills Prov: NIC LYN 05/04/17 Copy Copies To 1: PERLA BERNAL DO NIC LYN May 04, 2017 14:30
[2017-05-04 14:37] LABS: BASOPHILS % (AUTO) 0 % (0-10); EOSINOPHILS # (AUTO) 0.1 10^3/uL (0.0-0.3); EOSINOPHILS % (AUTO) 1 % (0-10); HEMATOCRIT 36 % (35-52); HEMOGLOBIN 11.8 G/DL (11.5-16.0); LYMPHOCYTES # (AUTO) 1.6 X 10^3 (1.0-4.0); LYMPHOCYTES % (AUTO) 18 % (12-44); MEAN CORPUSCULAR HEMOGLOBIN 31 PG (25-34); MEAN CORPUSCULAR HGB CONC 33 G/DL (32-36); MEAN CORPUSCULAR VOLUME 94 FL (80-99); MEAN PLATELET VOLUME 10.4 FL (7.4-10.4); MONOCYTES # (AUTO) 0.7 X 10^3 (0.0-1.0); MONOCYTES % (AUTO) 7 % (0-12); NEUTROPHILS # (AUTO) 6.8 X 10^3 (1.8-7.8); NEUTROPHILS % (AUTO) 74 % (42-75); PLATELET COUNT 326 10^3/uL (130-400); RED BLOOD COUNT 3.87 10^6/uL (4.35-5.85); RED CELL DISTRIBUTION WIDTH 13.7 % (10.0-14.5); WHITE BLOOD COUNT 9.2 10^3/uL (4.3-11.0)
[2017-05-04 14:44] LABS: CLARITY,URINE CLEAR; COLOR,URINE YELLOW; GLUCOSE, URINE (UA) NEGATIVE (NEGATIVE); KETONES,URINE NEGATIVE (NEGATIVE); LEUKOCYTE ESTERASE ,URINE 3+ (NEGATIVE); NITRITE,URINE POSITIVE (NEGATIVE); PH,URINE 5 (5-9); PROTEIN,URINE 3+ (NEGATIVE); UROBILINOGEN,URINE 1 MG/DL (NORMAL)
[2017-05-04 14:49] LABS: ALANINE AMINOTRANSFERASE 19 U/L (0-55); ALBUMIN 3.8 GM/DL (3.2-4.5); ALKALINE PHOSPHATASE 96 U/L (40-136); BILIRUBIN,TOTAL 0.7 MG/DL (0.1-1.0); BUN/CREATININE RATIO 22; CALCIUM 8.8 MG/DL (8.5-10.1); CARBON DIOXIDE 23 MMOL/L (21-32); CHLORIDE 103 MMOL/L (98-107); CREATININE SERUM 0.86 MG/DL (0.60-1.30); GFR ESTIMATED > 60; GLUCOSE 196 MG/DL (70-105); MAGNESIUM 1.6 MG/DL (1.8-2.4); POTASSIUM 4.1 MMOL/L (3.6-5.0); SODIUM 140 MMOL/L (135-145); TOTAL PROTEIN 7.5 GM/DL (6.4-8.2)
[2017-05-04 14:51] LABS: BACTERIA,URINE MODERATE /HPF; BILIRUBIN,URINE 1+ (NEGATIVE); RBC,URINE 0-2 /HPF; SQUAMOUS EPITHELIAL CELL,UR 0-2 /HPF
[2017-05-04] MEDS ORDERED: FUROSEMIDE 40 MG/4 ML INJ (LASIX) IVP ONE (15:00)
--- NOTE | 2017-05-04 15:06 | Diagnostic Imaging Report ---
INDICATION: Chest pain. Frontal chest obtained at 2:51 p.m. and compared to 06/29/2016. FINDINGS: There is marked cardiomegaly. There is central vascular congestion. There is limitation of the study due to technique and body habitus. There is no definite consolidation or pleural fluid. IMPRESSION: Limited study. Prominent cardiomegaly with central vascular congestion. No definite consolidation or pleural fluid. Dictated by: Dictated on workstation # [id number]
[2017-05-04] MEDS ORDERED: CEPH500T PO (15:33)
[2017-05-04 17:05] VITALS: BP 128/82
== END 2017-05-04 17:05 | disposition home or self-care (01) ==
LOC: EDUNIT# 13:15 → ER 13:17
DX: N39.0 Urinary tract infection, site not specified (principal); R60.0 Localized edema; J44.9 Chronic obstructive pulmonary disease, unspecified; G47.30 Sleep apnea, unspecified; E78.00 Pure hypercholesterolemia, unspecified; E11.9 Type 2 diabetes mellitus without complications; E03.9 Hypothyroidism, unspecified; F41.9 Anxiety disorder, unspecified; Z87.19 Personal history of other diseases of the digestive system; Z87.448 Personal history of other diseases of urinary system; Z88.2 Allergy status to sulfonamides; Z82.49 Family history of ischemic heart disease and other diseases of the circulatory system; Z80.0 Family history of malignant neoplasm of digestive organs; Z88.5 Allergy status to narcotic agent; Z91.048 Other nonmedicinal substance allergy status; Z79.4 Long term (current) use of insulin; Z77.22 Contact with and (suspected) exposure to environmental tobacco smoke (acute) (chronic); Z90.89 Acquired absence of other organs
CPT/HCPCS: 36415; 51702; 71045; 80053; 81000; 83735; 83880; 84484; 85025; 86141; 87088; 87186; 93005; 93041; 94640; 96374

== ENCOUNTER 2017-05-09 19:50 | Emergency (ER) | payer MEDICAID ==
[~2017-05-09] VITALS: Ht 162.6 cm; Wt 242.2 kg
[~2017-05-09 19:50] MED LIST changes: +CEPH500T PO
--- OUTSIDE RECORDS SUMMARY | 2017-05-09 19:57 | XMS REPORT | Continuity of Care Document ---
Author Author [facility] Address Unknown Phone Unavailable [...] GIANLUCA GARCIA APRN 244.9 HYPOTHYROIDISM 02/08/2013 GARCIA EMAIL ADMINISTRATOR, GIANLUCA R 250.60 DIABETES W/ NEUROPATHY; DM [...] K 311 DEPRESSIVE DISORDER NOS 04/20/2013 GARCIA EMAIL ADMINISTRATOR, GIANLUCA R 311 DEPRESSIVE DISORDER NOS 04/20/2013 BERNAL DO, PERLA K 311 DEPRESSIVE DISORDER NOS 04/20/2013 GARCIA EMAIL ADMINISTRATOR, GIANLUCA R 311 DEPRESSIVE DISORDER NOS 04/20/2013 BERNAL DO, PERLA K 311 DEPRESSIVE DISORDER NOS 04/20/2013 BERNAL DO, PERLA K 311 DEPRESSIVE DISORDER NOS 04/20/2013 GARCIA EMAIL ADMINISTRATOR, GIANLUCA R 311 DEPRESSIVE DISORDER NOS 04/20/2013 BERNAL DO, PERLA K 311 DEPRESSIVE DISORDER NOS 04/20/2013 GARCIA EMAIL ADMINISTRATOR, GIANLUCA R 311 DEPRESSIVE DISORDER NOS 04/20/2013 [...] Procedures Code [place] [address] ROUTINE VENIPUNCTURE 03/21/2013 55109 A1C (IN-HOUSE) 03/21/2013 36695 CBC 03/21/2013 28812 CMP 03/21/2013 49923 LIPID PANEL 03/21/2013 4727100 GFR CALC (RESULT ONLY) 03/21/2013 77955 TSH 03/21/2013 42627 UA LONG DIP 06/15/2013 95678 A1C (IN-HOUSE) 06/15/2013 83237 MICRO ALBUMIN-IN HOUSE 06/15/2013 89904 A1C (IN-HOUSE) 10/05/2013 64011 MAMMOGRAM, SCREENING 12/20/2013 48133 GC/CHLAM PROBE ([facility]) 12/20/2013 Q0091 PAP SMEAR OBTAIN SMEAR 12/20/2013 90370 TRICHOMONAS (IN-HOUSE) 12/20/2013 33098 PAP SMEAR 12/22/2013 63651 CULTURE UROGENITAL 12/23/2013 12847 UA LONG DIP 01/11/2014 43225 A1C (IN-HOUSE) 02/08/2014 58752 ROUTINE VENIPUNCTURE 06/14/2014 49661 A1C (IN-HOUSE) 06/14/2014 [id number] GFR CALC (RESULT ONLY) 06/14/2014 45030 CMP 06/14/2014 78567 LIPID PANEL 06/14/2014 79699 TSH 06/14/2014 Results There is no data. Encounters ACCT No. Visit Date/Time Discharge Status Pt. Type Provider Facility Loc./Unit Complaint [id number] 06/14/2014 10:54:00 06/14/2014 23:59:59 CLS Outpatient PERLA BERNAL DO [id number] 02/08/2014 10:47:00 02/08/2014 23:59:59 CLS Outpatient PERLA BERNAL DO [id number] 01/11/2014 10:44:00 01/11/2014 23:59:59 CLS Outpatient PERLA BERNAL DO [id number] 12/20/2013 11:02:00 12/20/2013 23:59:59 CLS Outpatient PERLA BERNAL DO [id number] 10/05/2013 10:59:00 10/05/2013 23:59:59 CLS Outpatient GIANLUCA GARCIA APRN [id number] 10/05/2013 10:59:00 10/05/2013 23:59:59 CLS Outpatient PERLA BERNAL DO [id number] 09/07/2013 10:54:00 09/07/2013 23:59:59 CLS Outpatient GIANLUCA GARCIA APRN [id number] 08/10/2013 10:59:00 08/10/2013 23:59:59 CLS Outpatient PERLA BERNAL DO [id number] 07/13/2013 10:29:00 07/13/2013 23:59:59 CLS Outpatient PERLA BERNAL DO [id number] 06/15/2013 09:36:00 06/15/2013 23:59:59 CLS Outpatient PERLA BERNAL DO [id number] 06/15/2013 09:36:00 06/15/2013 23:59:59 CLS Outpatient GIANLUCA GARCIA APRN [id number] 05/18/2013 10:41:00 05/18/2013 23:59:59 CLS Outpatient GIANLUCA GARCIA APRN [id number] 04/20/2013 10:21:00 04/20/2013 23:59:59 CLS Outpatient PERLA BERNAL DO [id number] 03/21/2013 12:22:00 03/21/2013 23:59:59 CLS Outpatient PERLA BERNAL DO [id number] 02/08/2013 13:26:00 02/08/2013 23:59:59 CLS Outpatient PERLA BERNAL DO
[2017-05-09] MEDS ORDERED: ASPIRIN 81 MG CHEW (CHILDREN'S ASA) PO ONE (20:30)
[2017-05-09 20:37] LABS: BASOPHILS % (AUTO) 0 % (0-10); EOSINOPHILS # (AUTO) 0.1 10^3/uL (0.0-0.3); EOSINOPHILS % (AUTO) 1 % (0-10); HEMATOCRIT 37 % (35-52); HEMOGLOBIN 12.3 G/DL (11.5-16.0); LYMPHOCYTES # (AUTO) 2.2 X 10^3 (1.0-4.0); LYMPHOCYTES % (AUTO) 24 % (12-44); MEAN CORPUSCULAR HEMOGLOBIN 30 PG (25-34); MEAN CORPUSCULAR HGB CONC 33 G/DL (32-36); MEAN CORPUSCULAR VOLUME 92 FL (80-99); MONOCYTES # (AUTO) 0.7 X 10^3 (0.0-1.0); MONOCYTES % (AUTO) 7 % (0-12); NEUTROPHILS # (AUTO) 6.3 X 10^3 (1.8-7.8); NEUTROPHILS % (AUTO) 68 % (42-75); PLATELET COUNT 342 10^3/uL (130-400); RED BLOOD COUNT 4.07 10^6/uL (4.35-5.85); RED CELL DISTRIBUTION WIDTH 13.6 % (10.0-14.5); WHITE BLOOD COUNT 9.3 10^3/uL (4.3-11.0)
[2017-05-09 20:50] LABS: INR 1.1 (0.8-1.4); PROTHROMBIN TIME PATIENT 14.7 SEC (12.2-14.7)
[2017-05-09 21:00] LABS: ALANINE AMINOTRANSFERASE 18 U/L (0-55); ALKALINE PHOSPHATASE 90 U/L (40-136); BILIRUBIN,TOTAL 0.5 MG/DL (0.1-1.0); BUN/CREATININE RATIO 19; CALCIUM 9.3 MG/DL (8.5-10.1); CARBON DIOXIDE 26 MMOL/L (21-32); CHLORIDE 96 MMOL/L (98-107); CREATININE SERUM 0.83 MG/DL (0.60-1.30); GFR ESTIMATED > 60; GLUCOSE 132 MG/DL (70-105); MAGNESIUM 1.6 MG/DL (1.8-2.4); POTASSIUM 3.7 MMOL/L (3.6-5.0); SODIUM 138 MMOL/L (135-145); TOTAL PROTEIN 7.4 GM/DL (6.4-8.2)
--- NOTE | 2017-05-09 21:46 | Diagnostic Imaging Report ---
Clinical indication: Patient with shortness of air, chest pressure. Patient has bladder infection. Patient is morbidly obese. Exam: Chest x-ray PA view only. Comparison: Portable chest x-ray dated 05/04/2017. Findings: There is improved visualization of the chest. There is stable marked cardiomegaly. There is no significant pulmonary vascular congestion. There is no lung infiltrate seen. There is no pleural effusion or pneumothorax. There are degenerative spurs involving the thoracic spine. Impression: 1: There is stable cardiomegaly with no significant pulmonary vascular congestion. 2: There is no definite lung infiltrate. Dictated by: Dictated on workstation # [id number]
[2017-05-09 22:14] LABS: BILIRUBIN,URINE NEGATIVE (NEGATIVE); CLARITY,URINE SLIGHTLY CLOUDY; COLOR,URINE YELLOW; GLUCOSE, URINE (UA) NEGATIVE (NEGATIVE); KETONES,URINE NEGATIVE (NEGATIVE); LEUKOCYTE ESTERASE ,URINE 1+ (NEGATIVE); NITRITE,URINE NEGATIVE (NEGATIVE); PH,URINE 5 (5-9); PROTEIN,URINE 2+ (NEGATIVE); UROBILINOGEN,URINE NORMAL (NORMAL)
[2017-05-09 22:23] LABS: BACTERIA,URINE FEW /HPF
--- NOTE | 2017-05-09 23:01 | ED Cardiac General ---
History of Present Illness General Chief Complaint: Chest Pain Stated Complaint: SOB,HEART PALTIPATIONS Nursing Triage Note: patient reports heart palpitations and fluttering when she used a stethoscope and listened to her heart Source: patient Exam Limitations: no limitations History of Present Illness Date Seen by Provider: May 09, 2017 Time Seen by Provider: 23:01 Allergies and Home Medications Allergies Coded Allergies: Sulfa (Sulfonamide Antibiotics) (Verified Allergy, Unknown, 05/05/16) adhesive (Verified Allergy, Unknown, RASH, 06/29/16) codeine (Verified Allergy, Unknown, 05/05/16) Home Medications Atorvastatin Calcium 40 Mg Tablet, 40 MG PO HS, (Reported) Cephalexin 500 Mg Tablet, 500 MG PO BID Prescribed by: NIC LYN on 05/04/17 1533 Furosemide 20 Mg Tablet, 20 MG PO PRN PRN for FLUID RETENTION, (Reported) Insulin Glargine,Hum.rec.anlog 100 Unit/1 Ml Vial, 58 UNITS SQ DAILY, (Reported) Insulin Glargine,Hum.rec.anlog 100 Unit/1 Ml Vial, 188 UNIT SQ HS, (Reported) Levothyroxine Sodium 75 Mcg Tablet, 75 MCG PO DAILY, (Reported) Metformin HCl 500 Mg Tablet, 500 MG PO DAILY@1700, (Reported) TAKES ALONG WITH METFORMIN 1,000 MG Metformin HCl 1,000 Mg Tab.er.24, 1,000 MG PO BID, (Reported) TAKES ALONG WITH METFORMIN 500 MG Pioglitazone HCl 30 Mg Tablet, 30 MG PO DAILY, (Reported) Past Xsupqys-Nslapr-Shlfvh Hx Patient Social History Alcohol Use: Denies Use Number of Drinks Today: BB Alcohol Beverage of Choice: Beer, [place] Recreational Drug Use: No 2nd Hand Smoke Exposure: Yes Recent Foreign Travel: No Contact w/Someone Who Travel: No Recent Infectious Disease Expo: No Recent Hopitalizations: No Immunizations Up To Date PED Vaccines UTD: No Date of Pneumonia Vaccine: Jun 29, 2011 Seasonal Allergies Seasonal Allergies: Yes Surgeries History of Surgeries: Yes Surgeries: Adenoidectomy, Gallbladder, Tonsillectomy Respiratory History of Respiratory Disorde: Yes Respiratory Disorders: Asthma, Sleep Apnea, COPD Currently Using CPAP: No Currently Using BIPAP: No Cardiovascular History of Cardiac Disorders: Yes Cardiac Disorders: High Cholesterol Neurological History of Neurological Disord: Yes Neurological Disorders: Neuropathy Reproductive System Sexually Transmitted Disease: No HIV/AIDS: No Female Reproductive Disorders: Polycystic Ovarian Dis Genitourinary History of Genitourinary Disor: Yes Genitourinary Disorders: Bladder Infection Gastrointestinal History of Gastrointestinal Di: Yes Gastrointestinal Disorders: Irritable Bowel Musculoskeletal History of Musculoskeletal Dis: Yes Musculoskeletal Disorders: Arthritis, Chronic Back Pain Endocrine History of Endocrine Disorders: Yes Endocrine Disorders: Diabetes, Insulin dep, Hypothyroidsim HEENT Loss of Vision: Denies Hearing Impairment: Denies Cancer History of Cancer: No Psychosocial History of Psychiatric Problem: Yes Behavioral Health Disorders: Anxiety Integumentary History of Skin or Integumenta: Yes (CELLULITIS) Blood Transfusions History of Blood Disorders: No Family Medical History Significant Family History: No Pertinent Family Hx Family Medial History: Cardiovascular disease 19 MOTHER, Onset:Unknown Colon cancer MATERNAL GMA, Onset:Unknown Diabetes mellitus 19 MOTHER, Onset:Unknown FH: emphysema 19 FATHER, Onset:Unknown FH: epilepsy 19 FATHER, Onset:Unknown FH: liver disease 19 FATHER, Onset:Unknown Hypertension 19 MOTHER, Onset:Unknown Kidney disease 19 FATHER, Onset:Unknown Physical Exam Vital Signs Vital Signs - First Documented 05/09/17 20:20 Temp 98.2 Pulse 84 Resp 18 Pulse Ox 95 Capillary Refill : Less Than 3 Seconds Progress/Results/Core Measures Results/Orders Lab Results Laboratory Tests Test 05/09/17 20:21 Range/Units White Blood Count 9.3 4.3-11.0 10^3/uL Red Blood Count 4.07 L 4.35-5.85 10^6/uL Hemoglobin 12.3 11.5-16.0 G/DL Hematocrit 37 35-52 % Mean Corpuscular Volume 92 80-99 FL Mean Corpuscular Hemoglobin 30 25-34 PG Mean Corpuscular Hemoglobin Concent 33 32-36 G/DL Red Cell Distribution Width 13.6 10.0-14.5 % Platelet Count 342 130-400 10^3/uL Mean Platelet Volume 10.0 7.4-10.4 FL Neutrophils (%) (Auto) 68 42-75 % Lymphocytes (%) (Auto) 24 12-44 % Monocytes (%) (Auto) 7 0-12 % Eosinophils (%) (Auto) 1 0-10 % Basophils (%) (Auto) 0 0-10 % Neutrophils # (Auto) 6.3 1.8-7.8 X 10^3 Lymphocytes # (Auto) 2.2 1.0-4.0 X 10^3 Monocytes # (Auto) 0.7 0.0-1.0 X 10^3 Eosinophils # (Auto) 0.1 0.0-0.3 10^3/uL Basophils # (Auto) 0.0 0.0-0.1 10^3/uL Prothrombin Time 14.7 12.2-14.7 SEC INR Comment 1.1 0.8-1.4 Activated Partial Thromboplast Time 26 24-35 SEC Urine Color YELLOW Urine Clarity SLIGHTLY CLOUDY Urine pH 5 5-9 Urine Specific [place] 1.015 L 1.016-1.022 Urine Protein 2+ H NEGATIVE Urine Glucose (UA) NEGATIVE NEGATIVE Urine Ketones NEGATIVE NEGATIVE Urine Nitrite NEGATIVE NEGATIVE Urine Bilirubin NEGATIVE NEGATIVE Urine Urobilinogen NORMAL NORMAL MG/DL Urine Leukocyte Esterase 1+ H NEGATIVE Urine RBC (Auto) NEGATIVE NEGATIVE Urine RBC NONE /HPF Urine WBC 2-5 /HPF Urine Squamous Epithelial Cells 10-25 H /HPF Urine Crystals NONE /LPF Urine Bacteria FEW H /HPF Urine Casts PRESENT /LPF Urine Hyaline Casts 5-10 H /LPF Urine Mucus SMALL H /LPF Urine Culture Indicated NO Sodium Level 138 135-145 MMOL/L Potassium Level 3.7 3.6-5.0 MMOL/L Chloride Level 96 L 98-107 MMOL/L Carbon Dioxide Level 26 21-32 MMOL/L Anion Gap 16 H 5-14 MMOL/L Blood Urea Nitrogen 16 7-18 MG/DL Creatinine 0.83 0.60-1.30 MG/DL Estimat Glomerular Filtration Rate > 60 BUN/Creatinine Ratio 19 Glucose Level 132 H 70-105 MG/DL Calcium Level 9.3 8.5-10.1 MG/DL Magnesium Level 1.6 L 1.8-2.4 MG/DL Total Bilirubin 0.5 0.1-1.0 MG/DL Aspartate Amino Transf (AST/SGOT) 11 5-34 U/L Alanine Aminotransferase (ALT/SGPT) 18 0-55 U/L Alkaline Phosphatase 90 40-136 U/L Myoglobin 41.0 10.0-92.0 NG/ML Troponin I < 0.30 <0.30 NG/ML Total Protein 7.4 6.4-8.2 GM/DL Albumin 4.0 3.2-4.5 GM/DL Medications Given in ED Current Medications Medications Dose Ordered Sig/Zack Route Start Time Stop Time Status Last Admin Dose Admin Aspirin 324 mg ONCE ONCE PO 05/09/17 20:30 05/09/17 20:31 DC 05/09/17 20:33 324 MG Vital Signs/I&O Vital Sign - Last 12Hours 05/09/17 20:20 Temp 98.2 Pulse 84 Resp 18 B/P (MAP) Pulse Ox 95 Departure Impression Impression: Primary Impression: Gas pain Additional Impressions: Localized edema Palpitations Disposition: HOME, SELF-CARE Condition: Improved Departure-Patient Inst. Decision time for Depature: 23:23 Referrals: [facility] (PCP/Family) Primary Care Physician Patient Instructions: Gas and Bloating, Palpitations (DC) Add. Discharge Instructions: All discharge instructions reviewed with patient and/or family. Voiced understanding. Medications as instructed. Continue usual home medications. Chewable Gas-X or Beano [id number] as directed for symptoms. Drink plenty of fluids. Elevate the lower extremities. Follow-up with Rudy Garcia early this week for recheck. Monitor blood sugars closely. Monitor your heart rate and blood pressure twice daily. Take a list of the readings with you to your appointment with Rudy Garcia. Return in the emergency department for worsened symptoms, chest pain, shortness of air, dizziness, abdominal pain, fever, difficulty breathing, difficulty swallowing, or any other concerns. Scripts Dicyclomine HCl (Dicyclomine HCl) 20 Mg Tablet 20 MG PO TID, #30 TAB 0 Refills Prov: RICKIE MORA 05/09/17 RICKIE MORA May 09, 2017 23:01
[2017-05-09] MEDS ORDERED: DICY20TA10 PO (23:25)
[2017-05-09] MEDS ORDERED: RX-DICYCLOMINE 10 MG (BENTYL) CAP PPK#4 PO STA (23:39)
[2017-05-09 23:46] VITALS: BP 139/89
== END 2017-05-09 23:46 | disposition home or self-care (01) ==
LOC: EDUNIT# 19:50 → ER 19:52
DX: R14.1 Gas pain (principal); R60.0 Localized edema; R00.2 Palpitations; E11.40 Type 2 diabetes mellitus with diabetic neuropathy, unspecified; F41.9 Anxiety disorder, unspecified; E78.00 Pure hypercholesterolemia, unspecified; E03.9 Hypothyroidism, unspecified; J44.9 Chronic obstructive pulmonary disease, unspecified; Z77.22 Contact with and (suspected) exposure to environmental tobacco smoke (acute) (chronic); Z90.89 Acquired absence of other organs; Z87.42 Personal history of other diseases of the female genital tract; Z79.4 Long term (current) use of insulin; Z88.2 Allergy status to sulfonamides; Z88.5 Allergy status to narcotic agent; Z91.048 Other nonmedicinal substance allergy status
CPT/HCPCS: 36415; 71045; 80053; 81000; 83735; 83874; 84484; 85025; 85610; 85730

== ENCOUNTER → 2017-12-23 | Outpatient (CLI) | payer MEDICAID ==
[~2017-12-23] MED LIST changes: +DICY20TA10 PO; +METF-397 PO; -METF500T4 PO; -PIOG30TA26 PO; +PIOG30TA71 PO
== END ==
LOC: LAB 14:32
PROVIDERS: ATTEND Surgery
DX: L98.492 Non-pressure chronic ulcer of skin of other sites with fat layer exposed (principal); I89.0 Lymphedema, not elsewhere classified; E66.01 Morbid (severe) obesity due to excess calories; E11.622 Type 2 diabetes mellitus with other skin ulcer; R19.02 Left upper quadrant abdominal swelling, mass and lump
CPT/HCPCS: 36415; 83036

== ENCOUNTER → 2017-12-23 | Outpatient (CLI) | payer MEDICAID | LOC: WOUNDCARE 12:27 | PROVIDERS: ATTEND Surgery | DX: E11.622 Type 2 diabetes mellitus with other skin ulcer (principal); L98.492 Non-pressure chronic ulcer of skin of other sites with fat layer exposed; I89.0 Lymphedema, not elsewhere classified; R19.02 Left upper quadrant abdominal swelling, mass and lump; E66.01 Morbid (severe) obesity due to excess calories; Z68.45 Body mass index [BMI] 70 or greater, adult | CPT/HCPCS: 11042; 11045; 87070; 87075; 87205 ==

== ENCOUNTER → 2017-12-25 | Outpatient (CLI) | payer MEDICAID ==
--- NOTE | 2017-12-25 12:29 | Diagnostic Imaging Report ---
INDICATION: Left-sided abdominal wall mass. Chronic skin ulceration. TECHNIQUE: Multiple real time jamison scale sonographic images were obtained of the left lower abdominal wall. CORRELATION STUDY: None FINDINGS: Ultrasound imaging of the abdominal wall in the area of concern demonstrates heterogeneous echotexture to be present. A definitive focal fluid collection or mass type lesion however does not appear to be suggested. There does appear to be some edema present. IMPRESSION: 1.No definitive mass or abscess formation of the left lower abdominal wall. Some edema does appear to be present. Dictated by: Dictated on workstation # [id number]
== END ==
LOC: RAD 07:36
PROVIDERS: ATTEND Surgery
DX: E11.622 Type 2 diabetes mellitus with other skin ulcer (principal); L98.492 Non-pressure chronic ulcer of skin of other sites with fat layer exposed; I89.0 Lymphedema, not elsewhere classified; E66.01 Morbid (severe) obesity due to excess calories; R19.02 Left upper quadrant abdominal swelling, mass and lump
CPT/HCPCS: 76705

== ENCOUNTER → 2017-12-28 | Outpatient (CLI) | payer MEDICAID | LOC: WOUNDCARE 10:04 | PROVIDERS: ATTEND Surgery | DX: E11.622 Type 2 diabetes mellitus with other skin ulcer (principal); L98.492 Non-pressure chronic ulcer of skin of other sites with fat layer exposed; I89.0 Lymphedema, not elsewhere classified; E66.01 Morbid (severe) obesity due to excess calories; Z68.45 Body mass index [BMI] 70 or greater, adult | CPT/HCPCS: 11042; 11045 ==

== ENCOUNTER → 2018-01-04 | Outpatient (CLI) | payer MEDICAID ==
[2018-01-04 12:19] LABS: BASOPHILS % (AUTO) 0 % (0-10); EOSINOPHILS # (AUTO) 0.1 10^3/uL (0.0-0.3); EOSINOPHILS % (AUTO) 1 % (0-10); HEMATOCRIT 40 % (35-52); HEMOGLOBIN 12.9 G/DL (11.5-16.0); LYMPHOCYTES # (AUTO) 2.1 X 10^3 (1.0-4.0); LYMPHOCYTES % (AUTO) 30 % (12-44); MEAN CORPUSCULAR HEMOGLOBIN 29 PG (25-34); MEAN CORPUSCULAR HGB CONC 32 G/DL (32-36); MEAN CORPUSCULAR VOLUME 90 FL (80-99); MEAN PLATELET VOLUME 9.7 FL (7.4-10.4); MONOCYTES # (AUTO) 0.5 X 10^3 (0.0-1.0); MONOCYTES % (AUTO) 7 % (0-12); NEUTROPHILS # (AUTO) 4.2 X 10^3 (1.8-7.8); NEUTROPHILS % (AUTO) 61 % (42-75); PLATELET COUNT 316 10^3/uL (130-400); RED BLOOD COUNT 4.51 10^6/uL (4.35-5.85); RED CELL DISTRIBUTION WIDTH 15.2 % (10.0-14.5); WHITE BLOOD COUNT 6.9 10^3/uL (4.3-11.0)
[2018-01-04 12:45] LABS: ALANINE AMINOTRANSFERASE 13 U/L (0-55); ALKALINE PHOSPHATASE 83 U/L (40-136); BILIRUBIN,TOTAL 0.8 MG/DL (0.1-1.0); BUN/CREATININE RATIO 19; CALCIUM 9.6 MG/DL (8.5-10.1); CARBON DIOXIDE 29 MMOL/L (21-32); CHLORIDE 100 MMOL/L (98-107); CREATININE SERUM 0.84 MG/DL (0.60-1.30); GFR ESTIMATED > 60; GLUCOSE 104 MG/DL (70-105); POTASSIUM 3.8 MMOL/L (3.6-5.0); SODIUM 141 MMOL/L (135-145); TOTAL PROTEIN 8.5 GM/DL (6.4-8.2)
== END ==
LOC: LAB 11:49
PROVIDERS: ATTEND Surgery
DX: E11.622 Type 2 diabetes mellitus with other skin ulcer (principal); L98.492 Non-pressure chronic ulcer of skin of other sites with fat layer exposed; I89.0 Lymphedema, not elsewhere classified; E66.01 Morbid (severe) obesity due to excess calories; Z68.45 Body mass index [BMI] 70 or greater, adult
CPT/HCPCS: 36415; 80053; 85025

== ENCOUNTER → 2018-01-04 | Outpatient (CLI) | payer MEDICAID | LOC: WOUNDCARE 12:52 | PROVIDERS: ATTEND Surgery | DX: E11.622 Type 2 diabetes mellitus with other skin ulcer (principal); L98.492 Non-pressure chronic ulcer of skin of other sites with fat layer exposed; I89.0 Lymphedema, not elsewhere classified; E66.01 Morbid (severe) obesity due to excess calories; Z68.45 Body mass index [BMI] 70 or greater, adult | CPT/HCPCS: 11042 ==

== ENCOUNTER → 2018-01-11 | Outpatient (CLI) | payer MEDICAID | LOC: WOUNDCARE 10:13 | PROVIDERS: ATTEND Surgery | DX: I89.0 Lymphedema, not elsewhere classified (principal); E11.622 Type 2 diabetes mellitus with other skin ulcer; L98.492 Non-pressure chronic ulcer of skin of other sites with fat layer exposed; E66.01 Morbid (severe) obesity due to excess calories; Z68.45 Body mass index [BMI] 70 or greater, adult | CPT/HCPCS: 11042; 11045 ==

== ENCOUNTER → 2018-02-03 | Outpatient (CLI) | payer MEDICAID | LOC: WOUNDCARE 10:06 | PROVIDERS: ATTEND Orthopaedic Surgery Hand Surgery | DX: E11.622 Type 2 diabetes mellitus with other skin ulcer (principal); L98.492 Non-pressure chronic ulcer of skin of other sites with fat layer exposed; I89.0 Lymphedema, not elsewhere classified; E66.01 Morbid (severe) obesity due to excess calories; Z68.45 Body mass index [BMI] 70 or greater, adult | CPT/HCPCS: 11042 ==

== ENCOUNTER → 2018-02-10 | Outpatient (CLI) | payer MEDICAID | LOC: WOUNDCARE 10:11 | PROVIDERS: ATTEND Orthopaedic Surgery Hand Surgery | DX: E11.622 Type 2 diabetes mellitus with other skin ulcer (principal); I89.0 Lymphedema, not elsewhere classified; L98.492 Non-pressure chronic ulcer of skin of other sites with fat layer exposed; E66.01 Morbid (severe) obesity due to excess calories | CPT/HCPCS: 11042 ==

== ENCOUNTER → 2018-02-17 | Outpatient (CLI) | payer MEDICAID | LOC: WOUNDCARE 10:25 | PROVIDERS: ATTEND Orthopaedic Surgery Hand Surgery | DX: E11.622 Type 2 diabetes mellitus with other skin ulcer (principal); L98.492 Non-pressure chronic ulcer of skin of other sites with fat layer exposed; I89.0 Lymphedema, not elsewhere classified; E66.01 Morbid (severe) obesity due to excess calories; Z68.45 Body mass index [BMI] 70 or greater, adult | CPT/HCPCS: 11042 ==

== ENCOUNTER → 2018-03-10 | Outpatient (CLI) | payer MEDICAID | LOC: WOUNDCARE 10:21 | PROVIDERS: ATTEND Surgery | DX: E11.622 Type 2 diabetes mellitus with other skin ulcer (principal); L98.492 Non-pressure chronic ulcer of skin of other sites with fat layer exposed; I89.0 Lymphedema, not elsewhere classified; E66.01 Morbid (severe) obesity due to excess calories; Z68.45 Body mass index [BMI] 70 or greater, adult | CPT/HCPCS: 11042; 87070; 87075; 87205 ==

== ENCOUNTER → 2018-03-17 | Outpatient (CLI) | payer MEDICAID | LOC: WOUNDCARE 10:01 | PROVIDERS: ATTEND Surgery | DX: E11.622 Type 2 diabetes mellitus with other skin ulcer (principal); L98.492 Non-pressure chronic ulcer of skin of other sites with fat layer exposed; I89.0 Lymphedema, not elsewhere classified; E66.01 Morbid (severe) obesity due to excess calories; Z68.45 Body mass index [BMI] 70 or greater, adult | CPT/HCPCS: 11042 ==

== ENCOUNTER 2021-03-25 08:43 | Outpatient (CLI) | payer MEDICAID ==
[~2021-03-25] VITALS: Ht 64 cm; Wt 250.0 kg
[~2021-03-25 08:43] MED LIST changes: +CLIN-144 PO; -CLIN300C11 PO; +DICY20TA PO; -DICY20TA10 PO; -LEVO500T80 PO; +LEVO500T81 PO
[2021-03-25 09:10] VITALS: BP 143/70
[2021-03-25] MEDS ORDERED: diphenhydrAMINE 50 MG/ML INJ (BENADRYL) IV PRN (09:15)
[2021-03-25] MEDS ORDERED: EPINEPHrine INJECTION 1 MG/ML AMP IM PRN (09:15)
[2021-03-25] MEDS ORDERED: CASIRIVIMAB/IMDEVIMAB 1,200 MG in NS (IVPB) 50 ML IV ONE (09:15)
[2021-03-25] MEDS ORDERED: ACETAMINOPHEN 500 MG TAB (TYLENOL) PO PRN (09:15)
[2021-03-25] MEDS ORDERED: ONDANSETRON 4 MG/2 ML (SDV) Z0FRAN IV PRN (09:15)
[2021-03-25] MEDS ORDERED: CASIRIVIMAB/IMDEVIMAB 1,200 MG in NS (IVPB) 250 ML IV ONE (09:30)
[2021-03-25 09:50] VITALS: BP 143/70
[2021-03-25 09:51] VITALS: BP 143/70
[2021-03-25 11:07] VITALS: BP 138/61
== END 2021-03-25 10:53 ==
LOC: INFUSION 08:43
PROVIDERS: ATTEND Nurse Practitioner Family
DX: U07.1 COVID-19 (principal); E11.9 Type 2 diabetes mellitus without complications; J44.9 Chronic obstructive pulmonary disease, unspecified; E66.01 Morbid (severe) obesity due to excess calories